=== PATIENT | female | born 1955 | race Caucasian/White ===

== ENCOUNTER 2016-10-16 07:52 | Inpatient (IN) | payer BC, OTHER ==
[2016-09-19 14:26] VITALS: BMI 36.0
--- NOTE | 2016-09-19 15:06 | PAT Medication Instructions ---
Service Date Sep 19, 2016. Current Home Medication List Ipratropium-Albuterol (Combivent Respimat), 2 PUFFS INH QID Loratadine (Claritin), 10 MG PO QAM Metoprolol Tartrate (Lopressor) (Lopressor), 25 MG PO QAM Multiple Vitamins W/ Minerals (Ocuvite Lutein), 1 CAP PO QAM Omeprazole (Prilosec), 20 MG PO QAM Prednisone (Prednisone), 2 TAB PO QAM Sertraline (Zoloft), 50 MG PO HS Simvastatin (Zocor), 10 MG PO HS Warfarin Sod (Jantoven), 4 MG PO HS Warfarin Sod (Jantoven), 2 MG PO HS [Simply Arthritis], 1,300 MG PO BID Medication Instructions For Your Scheduled Surgery - Instructions per [facility]: Warfarin Sod (Jantoven), 4 MG PO HS Warfarin Sod (Jantoven), 2 MG PO HS - Hold the following medications the morning of surgery: Loratadine (Claritin), 10 MG PO QAM Multiple Vitamins W/ Minerals (Ocuvite Lutein), 1 CAP PO QAM - Take the following medications the morning of surgery with a sip of water OTHERWISE NOTHING TO EAT OR DRINK AFTER MIDNIGHT: Metoprolol Tartrate (Lopressor) (Lopressor), 25 MG PO QAM Omeprazole (Prilosec), 20 MG PO QAM Ipratropium-Albuterol (Combivent Respimat), 2 PUFFS INH QID [Simply Arthritis], 1,300 MG PO BID (okay to take up to 4 hours prior to surgery if needed) - Take the following medications as scheduled the night before surgery: Sertraline (Zoloft), 50 MG PO HS Simvastatin (Zocor), 10 MG PO HS Ipratropium-Albuterol (Combivent Respimat), 2 PUFFS INH QID [Simply Arthritis], 1,300 MG PO BID Note: pt was specifically told by Surgeon not to take Prednisone (Prednisone) , 2 TAB PO QAM the morning of the surgery If you have any questions please call us at [phone] (Brit Louis PA-C ) or [phone] or [phone]
--- NOTE | 2016-09-19 15:34 | DIAGNOSTIC IMAGING REPORT ---
TWO VIEW CHEST CLINICAL HISTORY: Preoperative examination. FINDINGS: PA and lateral chest radiographs are obtained. No prior studies are available for comparison at the time of dictation. The heart is mildly enlarged and there is atherosclerotic calcification of the thoracic aorta. The pulmonary vasculature is noncongested. The lungs and pleural spaces are clear. There is no pneumothorax. The skeletal structures are osteopenic. Degenerative change is noted in the thoracic spine. Cholecystectomy clips are seen in the right upper quadrant. IMPRESSION: Mild cardiac enlargement with no active disease in the chest. Electronically signed by: Cruz Noel M.D. 09/19/2016 3:33 PM
[2016-09-19 15:49] LABS: BASO % 0.1 %; BASO ABS # 0.01 K/uL (0-0.2); COMPLETE YES; EOS % 0.2 %; HEMATOCRIT 41.4 % (37-47); IG% 0.6 %; LYMPH % 9.3 %; LYMPH ABS # 0.77 K/uL (1.2-3.4); MEAN CELL VOLUME 94.5 fL (80-100); MEAN CORPUSCULAR HEMOGLOBIN 30.8 pg (25-34); MEAN CORPUSCULAR HGB CONC 32.6 g/dl (32-36); MONO % 2.9 %; NEUT % 86.9 %; PLATELET COUNT 139 K/uL (130-400); RED BLOOD COUNT 4.38 M/uL (4.2-5.4)
[2016-09-19 16:04] LABS: INR 2.1 (0.9-1.1); PARTIAL THROMBOPLASTIN RATIO 1.1; PROTHROMBIN TIME (PATIENT) 23.2 SECONDS (9.0-12.0)
[2016-09-19 16:05] LABS: URINE APPEARANCE CLEAR (CLEAR); URINE BILIRUBIN NEG (NEG); URINE COLOR YELLOW; URINE EPITHELIAL CELL AUTO 0-5 /lpf (0-5); URINE NITRITE NEG (NEG); URINE SPECIFIC GRAVITY 1.018 (1.000-1.030); UROBILINOGEN NEG (NEG); ZZUR CULT IF INDIC CLEAN CATCH NO
[2016-09-19 16:09] LABS: MANUAL MICROSCOPIC REQUIRED? NO; REVIEW REQ? NO
[2016-09-19 16:16] LABS: ESTIMATED AVERAGE GLUCOSE 114 mg/dl; HA1C FLAG Normal (Normal)
[2016-09-19 16:22] LABS: BUN/CREATININE RATIO 16.7 (10-20); CREATININE 0.91 mg/dl (0.60-1.20)
[2016-09-19 16:35] LABS: CALCIUM 8.5 mg/dl (8.5-10.1)
--- NOTE | 2016-10-15 19:52 | HISTORY & PHYSICAL EXAMINATION ---
DATE OF ADMISSION: 10/16/2016 CHIEF COMPLAINT: Chronic right knee pain. HISTORY OF PRESENT ILLNESS: This is a 61-year-old female patient of Dr. Alegre'racquel complaining of chronic right knee pain, longstanding, now progressively getting worse. The patient has failed conservative treatment including acetaminophen, intraarticular injections including cortisone and viscosupplementation. She is on Coumadin, so she cannot have anti-inflammatories. The patient has increased pain with weightbearing activities and her pain does interfere with her activities of daily living. PAST MEDICAL HISTORY: Hypercholesterolemia, atrial fibrillation, asthma, anemia, rheumatoid arthritis, osteoarthritis, acid reflux. SOCIAL HISTORY: She was a half pack per day smoker for 14 years, she has quit in 1991, current she is a nondrinker. FAMILY HISTORY: Noncontributory. REVIEW OF SYSTEMS: The patient complains of chronic right knee pain, otherwise denies any shortness of breath, chest pain, nausea, vomiting or any other joint complaints. PAST SURGICAL HISTORY: Hysterectomy, cholecystectomy, colon resection and lumpectomy left breast. MEDICATIONS: Omeprazole 20 mg daily, Coumadin 4 mg daily, metoprolol 25 mg daily, Zocor 10 mg daily, prednisone 5 mg 3 tablets by mouth daily, Zoloft 50 mg daily, calcium daily, Combivent 18/103 mcg per ACT 2 puffs every 4 hours as needed, Claritin 10 mg daily, Lovenox 100 mg every 12 hours. ALLERGIES: INCLUDE SHELLFISH AND TENORMIN. PHYSICAL EXAMINATION: GENERAL: Well-developed, well-nourished 61-year-old female in no acute distress. She is alert and oriented x3 and pleasant. HEENT: Normocephalic, atraumatic. Extraocular motions are intact. Pupils are equal and reactive to light. HEART: Regular rate and rhythm, no murmurs appreciated. LUNGS: Clear. ABDOMEN: Soft, nontender, bowel sounds present. EXTREMITIES: Right knee reveals a limited range of motion of 0-120 degrees of varus alignment. She has crepitation with passive range of motion. She has 5/5 strength with medial joint line tenderness. NEUROLOGIC: Neurovascularly, she is intact in her right lower extremity. DIAGNOSES: Right knee end-stage osteoarthritis. She has atrial fibrillation, hypertension, hypercholesterolemia, asthma, anemia, rheumatoid arthritis, osteoarthritis, and acid reflux. PLAN: The patient was advised of her diagnosis. Indications, risks, benefits, and postop course have all been reviewed. The patient wishes to proceed with a right total knee arthroplasty. Necessary consent forms, preoperative testing and clearances will be obtained.
[~2016-10-16] VITALS: Ht 172.7 cm; Wt 108.9 kg
[2016-10-16] VITALS (9 sets, daily range): BP systolic 112–140; BP diastolic 71–96; PULSE 58–88; TEMP 36.6–37.1; O2SAT 95–99; Ht 172.7 cm; Wt 108.9 kg
[~2016-10-16 07:52] MED LIST: ACETAMINOPHEN 500 MG TAB PO SCH; BUPIVACAINE 0.25% 30 ML VIAL ONE; BUPIVACAINE 0.5 % 5 MG/1 ML PF 10ML VIAL ONE; CEFAZOLIN 2000 MG/60 ML D5W 60 ML IV SCH; CLR10 PO; CeleBREX 200 MG CAP PO SCH; DEXAMETHASONE 4 MG TAB PO SCH; FAMOTIDINE 20 MG TAB PO SCH; GABAPENTIN 300 MG CAP PO SCH; HYDROCORTISONE IV 100 MG in SYRINGE 0 ML IV SCH; IPRA1AER2 INH; LACTATED RINGER'S 1000ML IV SCH; LACTATED RINGER'S 500 ML IV SCH; METO25TA56 PO; METOCLOPRAMIDE HCL 10 MG TAB PO SCH; MULTCAP31 PO; PRED-301 PO; PRLSR20 PO; ROPIVACAINE 5MG/ML 30 ML 150 MG, BUPIVACAINE/EPINEPHR 0.5% MPF 30 ML, KETOROLAC TROMETH... INFIL SCH; SERT50TA PO; SIMV10TA2 PO; WARF2TAB8 PO; WARF4TAB8 PO; [UNRECOGNIZED DRUG - OTHER] PO
[2016-10-16] MEDS ORDERED: MIDAZOLAM HCL 1 MG/ML 2ML VIAL ONE ×2 (08:29→09:39)
[2016-10-16] MEDS ORDERED: FENTANYL CITRATE INJ 50 MCG/1 ML 2 ML VIAL ONE (08:29)
[2016-10-16 08:42] LABS: PARTIAL THROMBOPLASTIN RATIO 0.9; PROTHROMBIN TIME (PATIENT) 10.7 SECONDS (9.0-12.0)
[2016-10-16] MEDS ORDERED: ATROPINE SULFATE 0.1 MG/ML 5ML SYR IV PRN (08:45)
[2016-10-16] MEDS ORDERED: PHENYLEPHRINE 100MCG/ML 5ML SYR IV PRN (08:45)
[2016-10-16] MEDS ORDERED: HYDROmorphone INJ 2 MG/ML SYR/VIAL IV PRN (08:45)
[2016-10-16] MEDS ORDERED: EpHEDrine SULFATE INJ 50 MG/ML AMP IV PRN (08:45)
[2016-10-16] MEDS ORDERED: ONDANSETRON INJ 2 MG/ML 2 ML VIAL IV PRN ×2 (08:45→12:30)
[2016-10-16] MEDS ORDERED: ENOX120I SQ (09:07)
--- NOTE | 2016-10-16 10:04 | History & Physical Bridge Note ---
H&P Re-Evaluation Bridge Note: I have examined the patient, reviewed the History & Physical and in the interval since the performance of the History & Physical I have noted the following changes of clinical significance: No changes noted
[2016-10-16] MEDS ORDERED: ORTHO JOINT ANESTHETIC ONE (10:08)
[2016-10-16] MEDS ORDERED: LIDOCAINE HCL 2% 2 ML VIAL (20MG/ML) ONE (10:28)
[2016-10-16] MEDS ORDERED: PROPOFOL IV EMULSION 10 MG/ML 20 ML VIAL IV ONE ×3 (10:28→11:48)
[2016-10-16] MEDS ORDERED: EpHEDrine SULFATE 50MG/5ML SYR ONE (10:41)
[2016-10-16] MEDS ORDERED: BACITRACIN 50000 UNIT VIAL IR ONE (11:01)
[2016-10-16] MEDS ORDERED: POVIDONE-IODINE OP SOLN 30 ML BTL TOP ONE (11:01)
--- NOTE | 2016-10-16 11:55 | [facility] Operative Report ---
Operative Report Operative Date Oct 16, 2016. Pre-Operative Diagnosis End stage osteoarthritis right knee Post-Operative Diagnosis same Procedure(s) Performed right total knee replacement Surgeon Dr Alegre Dump Operator Surgeon(s) Benigno Breen PA-C Estimated Blood Loss 5ml Findings varus grade4 medial s/p medial meniscectomy and partial acl tear Specimens A. Right knee bone and tissue Drains 2 hemovac Anesthesia spinal ,orthomix Complication(s) None Disposition Recovery Room / PACU Indications end stage djd oa I attest to the content of the Intraoperative Record and any orders documented therein. Any exceptions are noted below.
--- NOTE | 2016-10-16 12:27 | OPERATIVE REPORT ---
DATE OF OPERATION: 10/16/2016 INDICATION FOR PROCEDURE: The patient is a 61-year-old female with chronic right knee pain, failed conservative management. She has had progressive osteoarthritis in medial compartment. She is status post previous arthroscopic surgery in the past. She has failed all conservative management including injections, PT, bracing. Her exam demonstrates she still has good mobility but has a varus knee. Her x-rays demonstrate she is [id number] in the medial compartment. She has some subluxation of the femur medial on the tibia. PREOPERATIVE DIAGNOSIS: End-stage osteoarthritis, right knee. POSTOPERATIVE DIAGNOSIS: Same. PROCEDURE: Right total knee arthroplasty. SURGEON: Dr. Alegre. BASIC COMBATANT SWIMMER: Benigno Breen PA-C. ANESTHESIA: Spinal sedation, Orthomix block. OPERATION AND FINDINGS: OPERATIVE PROCEDURE: The patient taken to the operating room, anesthetized under spinal anesthetic, regional block anesthetic. She was placed supine on the operating room table. Pneumatic tourniquet was placed about the right upper thigh. Right lower extremity was prepped and draped with ChloraPrep. Exam demonstrates she had no pseudolaxity. She had good range of motion and a varus knee. She had a small effusion, pretty large leg with obesity. Her leg was elevated, exsanguinated with Esmarch bandage. Pneumatic tourniquet was raised to 350 mmHg due to upper thigh obesity. The anterior incision made longitudinally across the right knee. The incision was carried down through the subcutaneous tissues down to the fascia. Subcutaneous flaps were elevated. Subcutaneous bleeders were cauterized. The medial retinaculum was incised and extended up into the mid third of the quadriceps tendon and extended down to the medial tibial tubercle. Intra-articular findings demonstrated that she had grade 4 DJD medial compartment, partial ACL tears, evidence of previous medial meniscectomy. She had grade 2-3 wear patella, normal lateral compartment. I used the Chamorro \T\ Nephew Journey 2.0, total knee arthroplasty system using [employer] MRI templating custom cutting blocks sized for a 6 femur, 5 tibia. To expose the knee the infrapatellar fat pad was resected. The fat pad over the anterior femur for placement of the component in that area was resected. Small lateral synovial bands were released. The cruciate ligaments were resected, menisci were resected. We had to do more releases around the medial tibial plateau to balance the ligaments and later pie crust the MCL to balance the ligaments. The femur could not be easily exposed due to the patella, so we went ahead and first did our patellar cut. The patellar width was measured first and then a subperiosteal peel lateral release was performed around the patella. Then the width was reproduced using a freehand cut technique and a 38 patella component. Drill holes were made for the patellar component. The excess lateral facet was beveled off to prevent any impingement on the condyle of the prosthetic. Then the femur was exposed and the custom cutting block was pinned in position and the distal femoral cut was made. Then the 5-in-1 cutting block was placed for the 6 femur. The anterior, posterior and chamfer cuts were made. Then the tibia was subluxed and the custom tibial cutting block was pinned in position and the proximal tibial cut was made. Then the lamina conche operator was used to verify ligamentous balance. The tibia was subluxed. The 5 tibial trial was externally rotated in line with the tibial tubercle, pinned in position. The punch for the stem was used. The 6 femoral trial was inserted, centered. The notch cutting devices were used. The collet was placed and then a 12 poly insert gave balanced ligaments through full range of motion and the patella tracked centrally. The trials were removed. The Orthomix anesthetic cocktail was injected per protocol. The knee was copiously irrigated with pulsatile lavage antibiotic solution and bacitracin. Final components were cemented with Simplex G cement. Final components were a 6 Oxinium posterior stabilized Chamorro \T\ Nephew Journey 2.0 right femoral component, the 5 tibial baseplate, the 12 posterior stabilized poly insert and 38 mm patella. While the cement cured Betadine soak was used per protocol. The knee was copiously irrigated with antibiotic solution and bacitracin. The quadriceps tendon and medial retinaculum were closed with interrupted [id number] #1 Vicryl sutures. Subcutaneous tissue closed with interrupted 2-0 Vicryl. Skin closed with key. Sterile dressings were applied including a Silverlon occlusive dressing. We did close the knee over 2 Hemovac drains. The patient tolerated the procedure well. MARY Ferris was my unit assistant and he functioned as unit assistant for the entire procedure. He assisted in patient positioning, prepping, draping, leg positioning, soft tissue retraction, instrument management, suture management as needed during the procedure and he performed the fascial, subcutaneous and skin closure and will participate in postoperative care of the patient. I attest to the content of the Intraoperative Record and any orders documented therein. Any exceptio ns are noted below.
[2016-10-16] MEDS ORDERED: MAGNESIUM HYDROXIDE SUSP 30 ML UDC PO PRN (12:30)
[2016-10-16] MEDS ORDERED: OXYCODONE HCL IR 5 MG TAB (IMMEDIATE RELEASE) PO PRN (12:30)
[2016-10-16] MEDS ORDERED: ZOLPIDEM TARTRATE 5 MG TAB PO PRN (12:30)
[2016-10-16] MEDS ORDERED: BISACODYL 10 MG SUPP PR PRN (12:30)
[2016-10-16] MEDS ORDERED: SOD PHOSPHATE/SOD BIPHOSPHATE ENEMA 132 ML BTL PR PRN (12:30)
[2016-10-16] MEDS ORDERED: MoRPHine SULFATE 2 MG/ML CARP IV PRN (12:30)
--- NOTE | 2016-10-16 12:51 | Anesthesiology Progress Note ---
Anesthesia Post Op Note Date & Time Oct 16, 2016 at 12:50 Vital Signs Pain Intensity: 0 Vital Signs Past 12 Hours Date Time Temp Pulse Resp B/P Pulse Ox O2 Delivery O2 Flow Rate FiO2 10/16/16 12:40 65 15 143/81 98 Nasal Cannula 2 10/16/16 12:30 75 14 143/69 98 Nasal Cannula 2 10/16/16 12:24 36.0 82 22 128/72 96 Nasal Cannula 2 10/16/16 08:29 36.6 67 18 131/96 99 Room Air Notes Mental Status: alert / awake / arousable, participated in evaluation Pt Amnestic to Procedure: Yes Nausea / Vomiting: adequately controlled Pain: adequately controlled Airway Patency, RR, SpO2: stable & adequate BP & HR: stable & adequate Hydration State: stable & adequate Anesthetic Complications: no major complications apparent
--- NOTE | 2016-10-16 12:55 | DIAGNOSTIC IMAGING REPORT ---
RIGHT KNEE 2 VIEWS History: Right total knee arthroplasty. Degenerative arthritis. Postop. FINDINGS: The patient is status post a right total knee arthroplasty. The hardware is intact. No fracture or dislocation. Skin key and surgical drains are in place. IMPRESSION: Right total knee arthroplasty. No evidence for hardware complication. Electronically signed by: Adán Gann M.D. 10/16/2016 12:53 PM Dictated Date/Time: 10/16/2016 12:52 PM
[2016-10-16] MEDS ORDERED: MoRPHine SULFATE 4 MG/ML 1 ML CARP\\VIAL IV PRN (14:30)
[2016-10-16] MEDS: D5W AND 1/2NSS + 20MEQ KCL 1,000 ML IV SCH ×2 (14:41→23:58)
--- NOTE | 2016-10-16 14:51 | Medical Consult ---
Consultation Date of Consultation: Oct 16, 2016. Attending Physician: Matthew Alegre M.D. Reason for Consultation: Post Op Medical Management History of Present Illness 61 year old female s/p right TKA today by Dr. Alegre. Patient reports she had mild right knee pain for the past several years however the pain acutely worsened over past couple of months. Patient failed outpatient conservative measures and therefore presented for the planned procedure today. Post operatively the patient is doing well. She reports her pain is well controlled. No chest pain or shortness of breath. She denies lightheadedness and dizziness. No numbness or tingling to the BLLE. She has not voided since surgery. Past Medical/Surgical History Medical Problems: (1) Asthma Status: Chronic (2) Depression Status: Chronic (3) Diverticulosis Status: Chronic (4) Dyslipidemia Status: Chronic (5) Osteoarthritis Status: Chronic (6) Palpitations Status: Chronic (7) Pulmonary embolism Status: Chronic (8) Retinal detachment Permanent Comment: s/p repair Status: Chronic (9) Vocal cord polyp Status: Chronic Surgical Problems: (1) H/O arthroscopy of right knee Status: Chronic (2) H/O bilateral oophorectomy Status: Chronic (3) H/O dilation and curettage Status: Chronic (4) H/O exploratory laparotomy Status: Chronic (5) History of dental surgery Status: Chronic (6) History of partial colectomy Permanent Comment: for diverticulitis Status: Chronic (7) Hx of cholecystectomy Status: Chronic (8) S/P lumpectomy of breast Status: Chronic (9) S/P partial hysterectomy Status: Chronic (10) S/P tonsillectomy and adenoidectomy Status: Chronic Family History FH: HTN (hypertension) FATHER FH: atrial fibrillation MOTHER Social History Smoking Status: Former Smoker Alcohol Use: none Allergies Coded Allergies: Shellfish Allergy (Verified Allergy, Severe, ANAPHYLAXIS, 10/16/16) Atenolol (Verified Allergy, Unknown, MULTIPLERSONALITY, 10/16/16) Home Medications Lovenox (Enoxaparin Sodium) 120 Mg/0.8 Ml Inj 100 Mg SQ BID Combivent Respimat (Ipratropium-Albuterol) 1 Aer Aer 2 Puffs INH QID Lopressor (Metoprolol Tartrate) 25 Mg Tab 25 Mg PO QAM Prednisone 5 Mg Tab 2 Tab PO QAM Prilosec (Omeprazole) 20 Mg Capcr 20 Mg PO QAM Jantoven (Warfarin Sodium) 2 Mg Tab 2 Mg PO HS MON, WED, FRI AND SUN Jantoven (Warfarin Sodium) 4 Mg Tab 4 Mg PO HS TAKES TUES, THUR AND SAT Claritin (Loratadine) 10 Mg Tab 10 Mg PO QAM Ocuvite Lutein (Multiple Vitamins W/ Minerals) 1 Cap Cap 1 Cap PO QAM [Simply Arthritis] 1,300 Mg PO BID GENERIC TYLENOL ARTHRITIS MEDICINE - BRAND FOR Pcsso Zocor (Simvastatin) 10 Mg Tab 10 Mg PO HS Zoloft (Sertraline HCl) 50 Mg Tab 50 Mg PO HS Current Inpatient Medications Current Inpatient Medications Medications (Trade) Dose Ordered Sig/Tom Route Start Time Stop Time Status Last Admin Dose Admin Lactated Ringer's 1,000 ml @ 60 mls/hr [id number] IV 10/16/16 06:00 10/16/16 22:39 10/16/16 08:55 60 MLS/HR Cefazolin Sodium (Ancef 2000mg/60 ml D5W) 60 ml @ 100 mls/hr PREOP IV 10/16/16 06:00 10/16/16 18:00 10/16/16 10:20 100 MLS/HR Acetaminophen (Tylenol Tab) 1,000 mg PREOP PO 10/16/16 06:00 10/16/16 18:00 Celecoxib (CeleBREX CAP) 200 mg PREOP PO 10/16/16 06:00 10/16/16 18:00 Dexamethasone (Decadron Tab) 8 mg PREOP PO 10/16/16 06:00 10/16/16 18:00 10/16/16 08:49 8 MG Famotidine (Pepcid Tab) 20 mg PREOP PO 10/16/16 06:00 10/16/16 18:00 10/16/16 08:50 20 MG Gabapentin (Neurontin Cap) 600 mg PREOP PO 10/16/16 06:00 10/16/16 18:00 10/16/16 08:50 600 MG Metoclopramide HCl 10 mg 10 mg PREOP PO 10/16/16 06:00 10/16/16 18:00 10/16/16 08:49 10 MG Hydrocortisone Sodium Succinate/ Syringe (Solu-Cortef IV/ Syringe) 2 ml @ 4 mls/min PREOP IV 10/16/16 06:00 10/16/16 15:00 10/16/16 09:44 4 MLS/MIN Enoxaparin Sodium (Lovenox Inj) 100 mg Q12H SQ 10/17/16 09:00 11/16/16 08:59 Loratadine (Claritin Tab) 10 mg QAM PO 10/17/16 09:00 11/16/16 08:59 Metoprolol Tartrate (Lopressor Tab) 25 mg QAM PO 10/17/16 09:00 11/16/16 08:59 Sertraline HCl (Zoloft Tab) 50 mg HS PO 10/16/16 21:00 11/15/16 20:59 Simvastatin 10 mg 10 mg HS PO 10/16/16 21:00 11/15/16 20:59 Potassium Chloride/Dextrose/ Sod Cl 1,000 ml @ 100 mls/hr Q10H IV 10/16/16 14:30 10/17/16 14:29 10/16/16 14:41 100 MLS/HR Cefazolin Sodium/ Dextrose (Ancef Iv/D5 50ml) 60 ml @ 100 mls/hr Q8H IV 10/16/16 18:00 10/17/16 02:35 Oxycodone HCl (Roxicodone Immediate Rel Tab) 1 TABLET FOR PAIN RATING... Q4H PRN PO 10/16/16 12:30 10/30/16 12:29 Oxycodone HCl (Oxycontin Tab) 10 mg Q12 PO 10/16/16 21:00 10/30/16 20:59 Morphine Sulfate (MoRPHine SULFATE INJ) 2 mg Q2H PRN IV 10/16/16 12:30 10/30/16 12:29 Acetaminophen (Tylenol Tab) 1,000 mg Q8 PO 10/16/16 15:15 11/15/16 15:14 Magnesium Hydroxide (Milk Of Magnesia Susp) 30 ml Q6H PRN PO 10/16/16 12:30 11/15/16 12:29 Bisacodyl (Dulcolax Supp) 10 mg DAILY PRN OK 10/16/16 12:30 11/15/16 12:29 Sodium Biphosphate/ Sodium Phosphate (Fleet Enema) 132 ml DAILY PRN OK 10/16/16 12:30 11/15/16 12:29 Docusate Sodium (coLACE CAP) 100 mg BID PO 10/16/16 21:00 11/15/16 20:59 Diphenhydramine HCl (Benadryl Cap) 25 mg Q8H PRN PO 10/16/16 12:30 11/15/16 12:29 Zolpidem Tartrate (Ambien Tab) 5 mg HSZ PRN PO 10/16/16 12:30 11/15/16 12:29 Multivitamins (Multivitamin Tab) 1 tab QAM PO 10/17/16 09:00 11/16/16 08:59 Ondansetron HCl (Zofran Inj) 4 mg Q6H PRN IV 10/16/16 12:30 11/15/16 12:29 Pantoprazole Sodium (Protonix Tab) 40 mg QAM PO 10/17/16 09:00 11/16/16 08:59 Tramadol HCl 1 tablet for pain rating... Q4H PRN PO 10/16/16 12:30 11/15/16 12:29 Hydrocortisone Sodium Succinate/ Syringe (Solu-Cortef IV/ Syringe) 2 ml @ 4 mls/min Q8H IV 10/16/16 15:00 10/17/16 07:01 Albuterol/ Ipratropium (Combivent Respimat Inh) 1 puffs QID INH 10/16/16 17:00 11/15/16 16:59 Morphine Sulfate (MoRPHine SULFATE INJ) 4 mg Q2H PRN IV 10/16/16 14:30 10/30/16 14:29 Prednisone (PredniSONE TAB) 20 mg Taper QAM PO 10/17/16 15:00 11/17/16 09:59 Warfarin Sodium (Coumadin Tab) 2 mg UD PO 10/16/16 16:00 11/15/16 15:59 UNV Warfarin Sodium (Coumadin Tab) 4 mg UD PO 10/16/16 16:00 11/15/16 15:59 UNV Review of Systems 10 point review of systems was completed with the pertinent positives and negatives noted per the HPI Physical Exam Date Time Temp Pulse Resp B/P Pulse Ox O2 Delivery O2 Flow Rate FiO2 10/16/16 14:30 85 14 140/83 98 Room Air 10/16/16 14:00 76 16 131/81 98 Nasal Cannula 2.0 10/16/16 13:30 99 Nasal Cannula 2.0 10/16/16 13:30 36.9 69 18 128/78 99 Nasal Cannula 2.0 10/16/16 13:30 Nasal Cannula 2.0 10/16/16 13:20 77 18 141/71 97 Nasal Cannula 2 10/16/16 13:10 71 19 132/75 98 Nasal Cannula 2 10/16/16 13:00 36.2 66 16 140/69 98 Nasal Cannula 2 10/16/16 12:50 65 14 129/74 98 Nasal Cannula 2 10/16/16 12:40 65 15 143/81 98 Nasal Cannula 2 10/16/16 12:30 75 14 143/69 98 Nasal Cannula 2 10/16/16 12:24 36.0 82 22 128/72 96 Nasal Cannula 2 10/16/16 08:29 36.6 67 18 131/96 99 Room Air General Appearance: no apparent distress Head: normocephalic Eyes: normal inspection ENT: hearing grossly normal Neck: supple, no JVD Respiratory/Chest: lungs clear, normal breath sounds, no respiratory distress Cardiovascular: regular rate, rhythm, no edema, normal peripheral pulses Abdomen/GI: normal bowel sounds, non tender, soft Extremities/Musculoskelatal: + pertinent finding (s/p right knee surgery, surgical dressing intact, drain in place draining bloody drainage) Neurologic/Psych: no motor/sensory deficits, alert, normal mood/affect, oriented x 3 Skin: normal color, warm/dry Laboratory Results Last 24 Hours Test 10/16/16 08:18 10/16/16 08:25 Bedside Glucose 84 mg/dl Prothrombin Time 10.7 SECONDS Prothromb Time International Ratio 1.0 Activated Partial Thromboplast Time 22.4 SECONDS Partial Thromboplastin Ratio 0.9 Assessment & Plan S/P RIGHT TKA - POD#0 - activity and wound care orders as per ortho - pain control with bowel regimen - PT/OT - monitor H/H for acute blood loss anemia and transfuse blood products PRN HX PE - Lovenox/Coumadin bridging ordered by ortho OSTEOARTHRITIS - on chronic Prednisone 10mg daily - Hydrocortisone 100mg q8h x 3 doses ordered by ortho - recommend starting 20mg Prednisone on 10/17 and 10/18 then resume home dosing on 10/19 HX HEART PALPITATIONS - continue beta fatou HLD - continue statin DEPRESSION - continue sertraline DVT PROPHYLAXIS - Lovenox/Coumadin bridging ATTENDING NOTE Patient seen & examined. Reviewed above medical consult and confirmed all the findings in person. Patient underwent Right TKA earlier today and has been doping well post- operatively. Reviewed the medical history & medications in detail. DVT Prophylaxis, Anti-coagulation and PT/OT as per Surgical team. Thank you for this consultation. We will follow the patient with you during their hospital stay. You can reach a member of the [facility] Hospitalist Team 27/04 via pager @ [phone]. Dr. Escobar will follow the patient. Charlie Hawkins MD
[2016-10-16] MEDS: TRAMADOL HCL 50 MG TAB PO PRN ×2 (15:21→21:24)
[2016-10-16] MEDS: HYDROCORTISONE IV 100 MG in SYRINGE 0 ML IV SCH ×2 (15:22→22:44)
[2016-10-16] MEDS ORDERED: WARFARIN SOD 4 MG TAB PO SCH ×2 (16:00)
[2016-10-16] MEDS: ACETAMINOPHEN 500 MG TAB PO SCH ×2 (16:12→21:29)
[2016-10-16] MEDS ORDERED: IPRATROPIUM BROMIDE/ALBUTEROL respimat INH INH SCH (17:00)
[2016-10-16] MEDS: IPRATROPIUM BROMIDE/ALBUTEROL respimat INH INH SCH ×2 (17:00→21:00)
[2016-10-16] MEDS: CEFAZOLIN IV 2,000 MG in DEXTROSE 5% 50ML 50 ML IV SCH (18:39)
[2016-10-16] MEDS: OXYCODONE HCL 10 MG TABCR (OXYCONTIN) PO SCH (21:00)
[2016-10-16] MEDS: DOCUSATE SODIUM 100 MG CAP PO SCH (21:00)
[2016-10-16] MEDS: SIMVASTATIN 10 MG TAB PO SCH (21:15)
[2016-10-16] MEDS: SERTRALINE HCL 50 MG TAB PO SCH (21:15)
[2016-10-17] VITALS (7 sets, daily range): BP systolic 95–137; BP diastolic 66–87; PULSE 59–66; TEMP 36.7–37; O2SAT 96–98
[2016-10-17] MEDS: CEFAZOLIN IV 2,000 MG in DEXTROSE 5% 50ML 50 ML IV SCH (02:08)
[2016-10-17] MEDS: HYDROCORTISONE IV 100 MG in SYRINGE 0 ML IV SCH (06:08)
[2016-10-17] MEDS: ACETAMINOPHEN 500 MG TAB PO SCH ×3 (06:09→21:32)
[2016-10-17 06:11] LABS: MEAN CELL VOLUME 92.1 fL (80-100); MEAN CORPUSCULAR HEMOGLOBIN 31.2 pg (25-34); MEAN CORPUSCULAR HGB CONC 33.8 g/dl (32-36); MEAN PLATELET VOLUME 10.8 fL (7.4-10.4); PLATELET COUNT 134 K/uL (130-400); RED BLOOD COUNT 3.69 M/uL (4.2-5.4); WHITE BLOOD COUNT 13.62 K/uL (4.8-10.8)
[2016-10-17 06:18] LABS: PROTHROMBIN TIME (PATIENT) 11.2 SECONDS (9.0-12.0)
[2016-10-17 06:47] LABS: BUN/CREATININE RATIO 19.3 (10-20); CALCIUM 8.1 mg/dl (8.5-10.1); CREATININE 0.83 mg/dl (0.60-1.20); POTASSIUM 4.1 mmol/L (3.5-5.1)
[2016-10-17] MEDS: TRAMADOL HCL 50 MG TAB PO PRN ×3 (07:03→21:31)
--- NOTE | 2016-10-17 08:25 | Anesthesiology Progress Note ---
Anesthesia Post Op Note Date & Time Oct 17, 2016 at 08:24 Vital Signs Pain Intensity: 5.0 Vital Signs Past 12 Hours Date Time Temp Pulse Resp B/P Pulse Ox O2 Delivery O2 Flow Rate FiO2 10/17/16 07:53 36.7 66 17 124/80 96 Room Air 10/17/16 07:08 Room Air 10/17/16 03:20 36.8 66 16 137/87 98 Room Air 10/16/16 23:55 Room Air 10/16/16 23:46 36.8 58 16 112/71 95 Room Air 10/16/16 20:47 82 122/81 Notes Mental Status: alert / awake / arousable, participated in evaluation Pt Amnestic to Procedure: Yes Nausea / Vomiting: adequately controlled Pain: adequately controlled Airway Patency, RR, SpO2: stable & adequate BP & HR: stable & adequate Hydration State: stable & adequate Neuraxial Anesthesia: was administered, sensory block resolved Anesthetic Complications: no major complications apparent
--- NOTE | 2016-10-17 08:40 | Orthopedic Progress Note ---
Orthopedic Progress Note Date of Service Oct 17, 2016. Subjective Post OP Day: 1 Reports: feeling well, pain controlled w PO medications, Denies: SOB, calf pain , chest pain, complaints, light headedness, nausea / vomiting Objective calves soft nontender, N/V intact, capillary refill less than 2 sec., dressing C /D/I, A&O x3, toes mobile Date Time Temp Pulse Resp B/P Pulse Ox O2 Delivery O2 Flow Rate FiO2 10/17/16 08:29 96 Room Air 10/17/16 07:53 36.7 66 17 124/80 96 Room Air 10/17/16 07:08 Room Air 10/17/16 03:20 36.8 66 16 137/87 98 Room Air 10/16/16 23:55 Room Air 10/16/16 23:46 36.8 58 16 112/71 95 Room Air 10/16/16 20:47 82 122/81 10/16/16 18:59 37.1 88 16 131/84 95 Room Air 10/16/16 16:00 98 Room Air 2.0 10/16/16 15:28 36.8 73 16 116/72 98 Room Air 10/16/16 14:30 85 14 140/83 98 Room Air 10/16/16 14:00 76 16 131/81 98 Nasal Cannula 2.0 10/16/16 13:30 99 Nasal Cannula 2.0 10/16/16 13:30 36.9 69 18 128/78 99 Nasal Cannula 2.0 10/16/16 13:30 Nasal Cannula 2.0 10/16/16 13:20 77 18 141/71 97 Nasal Cannula 2 10/16/16 13:10 71 19 132/75 98 Nasal Cannula 2 10/16/16 13:00 36.2 66 16 140/69 98 Nasal Cannula 2 10/16/16 12:50 65 14 129/74 98 Nasal Cannula 2 10/16/16 12:40 65 15 143/81 98 Nasal Cannula 2 10/16/16 12:30 75 14 143/69 98 Nasal Cannula 2 10/16/16 12:24 36.0 82 22 128/72 96 Nasal Cannula 2 Laboratory Results 24 Hours: Test 10/17/16 05:30 Hematocrit 34.0 % Hemoglobin 11.5 g/dL Prothromb Time International Ratio 1.0 Prothrombin Time 11.2 SECONDS Assessment & Plan Assessment: POD #1, Right TKA Plan: PT/ OT DVT proph- Coumadin with Lovenox bridging until INR therapeutic. D/C planning- Home w OPPT likely Thursday. As per medicine Inhouse Planning Pain Management: Oxycontin, Morphine, PO Tylenol, Oxy IR DVT Prophylaxis: TEDs, SCDs, Coumadin, Lovenox Discharge Planning Discharge Planning: home with oppt Pain Management: Oxycontin, PO Tylenol, Oxy IR DVT Prophylaxis: TEDs, Coumadin, Lovenox Therapy: Physical Therapy, Occupational Therapy
--- NOTE | 2016-10-17 08:41 | Discharge Instructions ---
Discharge Instructions Admission Reason for Admission: Right Knee Degenerative Joint Disease Discharge Discharge Diagnosis / Problem: Right TKA Discharge Goals Goal(s): Improve function Activity Recommendations Activity Limitations: as noted below . Instructions / Follow-Up Instructions / Follow-Up ACTIVITY RECOMMENDATIONS: SELF CARE INSTRUCTIONS AFTER TOTAL KNEE REPLACEMENT A. You may need to continue a physical therapy program after discharge from the hospital. There are several options available to you. Your doctor will assist you in selecting the best one for you. 1. An out-patient facility 2 to 3 times a week for therapy or home therapy. 2. Continue working on all exercises taught to you in the hospital. Your goals should be to increase bending of your knee to 90 degrees and beyond and to fully straighten your knee. B. You may progress at your own pace from walking with a walker or crutches to a cane; then to no assistive devices. C. Make walking a part of your daily routine. Be up as much as comfortable with rest periods throughout the day. Rest with leg elevation is very important. Use the ice wrap frequently for the first 3-4 weeks. D. There are no restrictions on activities. You may ride in a car, shop, participate in zinc skimmer and all social activities. E. Wear the long elastic stockings (TORREY hose) 20 hours a day for 2 weeks after surgery. They can be removed several times a day for laundering and for a bath. F. You may shower, no tub baths until cleared by your doctor. SPECIAL CARE INSTRUCTIONS: VERY IMPORTANT TO READ AND REVIEW A. There are a few signs you need to watch for after you are home. Call [facility] if you notice any of the followin. Increased severe knee pain. Some pain is expected especially when you exercise. 2. Increased swelling in your leg or knee; pain or swelling of the calf muscle in either lower leg. 3. Any fluid drainage from the incision. 4. Shortness of breath or chest pain. B. Please call [facility] at if you have any concerns or questions about your operation or recovery. The doctor or his nurse will return your call promptly. C. You must take antibiotics before dental work, bladder, bowel or other surgery. Your doctor will provide you with a permanent care to carry describing this precaution. IMPORTANT: * REMEMBER TO TAKE ASPIRIN, 81 MG, TWICE DAILY FOR 4 WEEKS UNLESS OTHERWISE DIRECTED. THIS IS YOUR BLOOD THINNER. * HIGH RISK PATIENTS MAY BE PRESCRIBED A STRONGER BLOOD THINNER. THIS WILL BE PROVIDED AT DISCHARGE. * CALL IF INCREASED PAIN, REDNESS, DRAINAGE OR FEVER GREATER THAT 101. * WEAR TORREY HOSE 20 HOURS PER DAY FOR 2 WEEKS. * YOU MAY HAVE A LARGE BAND-AID LIKE DRESSING (SILVERON). THIS WILL REMAIN ON YOUR INCISION FOR 7 DAYS, THEN CAN BE REMOVED. IF INCISION IS LEAKING THROUGH DRESSING, CALL THE OFFICE . FOLLOW UP VISIT: If appointment is not already scheduled: Please call [facility] to make a follow-up appointment for 2 weeks after your surgery at . Current Hospital Diet Patient's current hospital diet: Regular Diet Discharge Diet Recommended Diet: Regular Diet Procedures Procedures Performed: Right Total Knee Arthroplasty Cemented Pending Studies Studies pending at discharge: no Laboratory Results Hemoglobin A1c Test 09/19/16 15:04 Range/Units Estimated Average Glucose 114 mg/dl Hemoglobin A1c 5.6 4.5-5.6 % Medical Emergencies . Who to Call and When: Medical Emergencies: If at any time you feel your situation is an emergency, please call 911 immediately. . Non-Emergent Contact Non-Emergency issues call your: Primary Care Provider . "Provider Documentation" section prepared by Benigno Breen. VTE Core Measure Inpt VTE Proph given/why not?: Enoxaparin (Lovenox)SQ, Warfarin (Coumadin), T.E.D. Stockings, SCD's
[2016-10-17] MEDS: OXYCODONE HCL 10 MG TABCR (OXYCONTIN) PO SCH ×2 (08:52→21:00)
[2016-10-17] MEDS: DOCUSATE SODIUM 100 MG CAP PO SCH ×2 (08:52→21:00)
[2016-10-17] MEDS: IPRATROPIUM BROMIDE/ALBUTEROL respimat INH INH SCH ×4 (08:52→21:00)
[2016-10-17] MEDS: LORATADINE 10 MG TAB PO SCH (08:53)
[2016-10-17] MEDS: METOPROLOL TARTRATE 25 MG TAB PO SCH (08:53)
[2016-10-17] MEDS: ENOXAPARIN 100 MG/1ML SYR SQ SCH ×2 (08:54→21:00)
[2016-10-17] MEDS ORDERED: PANTOprazole SOD 40 MG TAB PO SCH (09:00)
[2016-10-17] MEDS ORDERED: NURSING VERBAL MED ORDER ONE (09:00)
[2016-10-17] MEDS ORDERED: MULTIVITAMIN TAB PO SCH (09:00)
[2016-10-17] MEDS ORDERED: WARFARIN SOD 2 MG TAB PO SCH ×2 (16:00)
--- NOTE | 2016-10-17 19:07 | Progress Note ---
Medicine Progress Note Date & Time of Visit: Oct 17, 2016 at 19:03. Subjective Patient seen and examined. Knee feels a little sore after working with physical therapy. Feels that she is doing very well after surgery. Objective Last 8 Hrs Date Time Temp Pulse Resp B/P Pulse Ox O2 Delivery O2 Flow Rate FiO2 10/17/16 15:37 36.9 59 18 120/74 98 Room Air 10/17/16 15:20 98 Room Air 10/17/16 11:15 37.0 64 16 95/66 98 Room Air Physical Exam: General-awake; alert; NAD Eyes-EOMI; no scleral icterus Neck-no stridor; trachea midline Lungs-CTA bilaterally; no wheezes/crackles Heart-RRR; no m/r/g Abdomen-soft; NTND; nBS Extremities-right knee bandage and drain c/d/i Neuro-no gross focal deficits Laboratory Results: Last 24 Hours Test 10/17/16 05:30 White Blood Count 13.62 K/uL Red Blood Count 3.69 M/uL Hemoglobin 11.5 g/dL Hematocrit 34.0 % Mean Corpuscular Volume 92.1 fL Mean Corpuscular Hemoglobin 31.2 pg Mean Corpuscular Hemoglobin Concent 33.8 g/dl RDW Standard Deviation 42.7 fL RDW Coefficient of Variation 12.7 % Platelet Count 134 K/uL Mean Platelet Volume 10.8 fL Prothrombin Time 11.2 SECONDS Prothromb Time International Ratio 1.0 Sodium Level 144 mmol/L Potassium Level 4.1 mmol/L Chloride Level 108 mmol/L Carbon Dioxide Level 28 mmol/L Anion Gap 8.0 mmol/L Blood Urea Nitrogen 16 mg/dl Creatinine 0.83 mg/dl Est Creatinine Clear Calc Drug Dose 93.2 ml/min Estimated GFR () 88.8 Estimated GFR (Non- 76.6 BUN/Creatinine Ratio 19.3 Random Glucose 148 mg/dl Calcium Level 8.1 mg/dl Assessment & Plan S/P RIGHT TKA - POD#1 - activity and wound care orders as per ortho - pain control with bowel regimen - PT/OT - monitor H/H for acute blood loss anemia and transfuse blood products PRN HX PE - Lovenox/Coumadin bridging ordered by ortho OSTEOARTHRITIS - on chronic Prednisone 10mg daily - Hydrocortisone 100mg q8h x 3 doses ordered by ortho - transitioned to 20mg Prednisone taper HX HEART PALPITATIONS - continue beta fatou HLD - continue statin DEPRESSION - continue sertraline DVT PROPHYLAXIS - Lovenox/Coumadin bridging Current Inpatient Medications: Current Inpatient Medications Medications (Trade) Dose Ordered Sig/Tom Route Start Time Stop Time Status Last Admin Dose Admin Enoxaparin Sodium (Lovenox Inj) 100 mg Q12H SQ 10/17/16 09:00 11/16/16 08:59 10/17/16 08:54 100 MG Loratadine (Claritin Tab) 10 mg QAM PO 10/17/16 09:00 11/16/16 08:59 10/17/16 08:53 10 MG Metoprolol Tartrate (Lopressor Tab) 25 mg QAM PO 10/17/16 09:00 11/16/16 08:59 10/17/16 08:53 25 MG Sertraline HCl (Zoloft Tab) 50 mg HS PO 10/16/16 21:00 11/15/16 20:59 10/16/16 21:15 50 MG Simvastatin (Zocor Tab) 10 mg HS PO 10/16/16 21:00 11/15/16 20:59 10/16/16 21:15 10 MG Oxycodone HCl (Roxicodone Immediate Rel Tab) 1 TABLET FOR PAIN RATING... Q4H PRN PO 10/16/16 12:30 10/30/16 12:29 Oxycodone HCl (Oxycontin Tab) 10 mg Q12 PO 10/16/16 21:00 10/30/16 20:59 Morphine Sulfate (MoRPHine SULFATE INJ) 2 mg Q2H PRN IV 10/16/16 12:30 10/30/16 12:29 Acetaminophen (Tylenol Tab) 1,000 mg Q8 PO 10/16/16 15:15 11/15/16 15:14 10/17/16 13:53 1,000 MG Magnesium Hydroxide (Milk Of Magnesia Susp) 30 ml Q6H PRN PO 10/16/16 12:30 11/15/16 12:29 Bisacodyl (Dulcolax Supp) 10 mg DAILY PRN MS 10/16/16 12:30 11/15/16 12:29 Sodium Biphosphate/ Sodium Phosphate (Fleet Enema) 132 ml DAILY PRN MS 10/16/16 12:30 11/15/16 12:29 Docusate Sodium (coLACE CAP) 100 mg BID PO 10/16/16 21:00 11/15/16 20:59 Diphenhydramine HCl (Benadryl Cap) 25 mg Q8H PRN PO 10/16/16 12:30 11/15/16 12:29 Zolpidem Tartrate (Ambien Tab) 5 mg HSZ PRN PO 10/16/16 12:30 11/15/16 12:29 Ondansetron HCl (Zofran Inj) 4 mg Q6H PRN IV 10/16/16 12:30 11/15/16 12:29 Tramadol HCl (Ultram Tab) 1 tablet for pain rating... Q4H PRN PO 10/16/16 12:30 11/15/16 12:29 10/17/16 11:09 100 MG Albuterol/ Ipratropium (Combivent Respimat Inh) 1 puffs QID INH 10/16/16 17:00 11/15/16 16:59 Morphine Sulfate (MoRPHine SULFATE INJ) 4 mg Q2H PRN IV 10/16/16 14:30 10/30/16 14:29 Prednisone (PredniSONE TAB) 20 mg Taper QAM PO 10/17/16 15:00 11/17/16 09:59 10/17/16 14:55 20 MG Warfarin Sodium (Coumadin Tab) 2 mg SuMoWeFr@1600 PO 10/17/16 16:00 11/16/16 15:59 10/17/16 17:19 2 MG Warfarin Sodium (Coumadin Tab) 4 mg TuThSa@1600 PO 10/16/16 16:00 11/15/16 15:59 10/16/16 16:11 4 MG Pantoprazole Sodium (Protonix Tab) 40 mg DAILYBB PO 10/18/16 06:00 11/16/16 08:59 Multivitamins/ Minerals (Multivitamin W/ Minerals Tab) 1 tab QAM PO 10/18/16 09:00 11/17/16 08:59 Cholecalciferol (Vitamin D Tab) 5,000 inter.unit DAILY PO 10/18/16 09:00 11/17/16 08:59
[2016-10-17] MEDS: SIMVASTATIN 10 MG TAB PO SCH (22:01)
[2016-10-17] MEDS: SERTRALINE HCL 50 MG TAB PO SCH (22:01)
[2016-10-18] MEDS: ACETAMINOPHEN 500 MG TAB PO SCH (05:37)
[2016-10-18] MEDS ORDERED: PANTOprazole SOD 40 MG TAB PO SCH (06:00)
[2016-10-18 06:01] VITALS: BP 125/76; PULSE 62; TEMP 36.8; O2SAT 99
[2016-10-18 06:45] LABS: HEMATOCRIT 29.6 % (37-47); MEAN CELL VOLUME 94.3 fL (80-100); MEAN CORPUSCULAR HEMOGLOBIN 30.6 pg (25-34); MEAN CORPUSCULAR HGB CONC 32.4 g/dl (32-36); MEAN PLATELET VOLUME 10.4 fL (7.4-10.4); PLATELET COUNT 115 K/uL (130-400); RED BLOOD COUNT 3.14 M/uL (4.2-5.4); WHITE BLOOD COUNT 8.51 K/uL (4.8-10.8)
[2016-10-18 07:02] LABS: INR 1.2 (0.9-1.1); PROTHROMBIN TIME (PATIENT) 13.4 SECONDS (9.0-12.0)
[2016-10-18 07:34] LABS: BUN/CREATININE RATIO 24.5 (10-20); CREATININE 0.72 mg/dl (0.60-1.20); POTASSIUM 3.9 mmol/L (3.5-5.1)
[2016-10-18] MEDS: IPRATROPIUM BROMIDE/ALBUTEROL respimat INH INH SCH ×2 (07:51→13:00)
[2016-10-18] MEDS: OXYCODONE HCL 10 MG TABCR (OXYCONTIN) PO SCH (07:51)
[2016-10-18] MEDS: DOCUSATE SODIUM 100 MG CAP PO SCH (07:52)
[2016-10-18] MEDS: METOPROLOL TARTRATE 25 MG TAB PO SCH (07:52)
[2016-10-18] MEDS: LORATADINE 10 MG TAB PO SCH (07:52)
[2016-10-18] MEDS: ENOXAPARIN 100 MG/1ML SYR SQ SCH (07:53)
[2016-10-18] MEDS ORDERED: CEROVITE ADV FORMULA TAB PO SCH (09:00)
[2016-10-18] MEDS ORDERED: CHOLECALCIFEROL 1000 INTER.UNIT TAB PO SCH (09:00)
--- NOTE | 2016-10-18 09:59 | Orthopedic Progress Note ---
Orthopedic Progress Note Date of Service Oct 18, 2016. Subjective Post OP Day: 2 Reports: feeling well, pain controlled w PO medications, Denies: SOB, calf pain , chest pain, complaints, light headedness, nausea / vomiting Objective calves soft nontender, N/V intact, capillary refill less than 2 sec., dressing C /D/I, A&O x3, toes mobile Date Time Temp Pulse Resp B/P Pulse Ox O2 Delivery O2 Flow Rate FiO2 10/18/16 06:01 36.8 62 16 125/76 99 Room Air 10/18/16 00:00 Room Air 10/17/16 23:00 36.9 65 16 111/71 96 Room Air 10/17/16 15:37 36.9 59 18 120/74 98 Room Air 10/17/16 15:20 98 Room Air 10/17/16 11:15 37.0 64 16 95/66 98 Room Air Laboratory Results 24 Hours: Test 10/18/16 06:00 10/18/16 06:20 Prothromb Time International Ratio 1.2 Prothrombin Time 13.4 SECONDS Hematocrit 29.6 % Hemoglobin 9.6 g/dL Assessment & Plan Assessment: POD #2, Right TKA Plan: PT/ OT DVT proph- Coumadin with Lovenox bridging until INR therapeutic. D/C planning- Home w OPPT today. As per medicine Inhouse Planning Pain Management: Oxycontin, Morphine, PO Tylenol, Oxy IR DVT Prophylaxis: TEDs, SCDs, Coumadin, Lovenox Discharge Planning Discharge Planning: home with oppt Pain Management: Oxycontin, PO Tylenol, Oxy IR DVT Prophylaxis: TEDs, Coumadin, Lovenox Therapy: Physical Therapy, Occupational Therapy
[2016-10-18] MEDS ORDERED: OXYSR10 PO (10:02)
[2016-10-18] MEDS ORDERED: RXC5 PO (10:02)
[2016-10-18] MEDS ORDERED: ONDA8TAB6 PO (10:02)
[2016-10-18] MEDS ORDERED: CLB200 PO (10:02)
[2016-10-18] MEDS ORDERED: ACET-1138 PO (10:02)
[2016-10-18 10:36] VITALS: BP 125/76; PULSE 62; TEMP 36.8; O2SAT 99
--- NOTE | 2016-11-01 16:45 | DISCHARGE SUMMARY ---
HISTORY OF PRESENT ILLNESS: This is a 61-year-old female patient of Dr. Alegre's complaining of chronic right knee pain, long-standing, now progressively getting worse. The patient failed conservative treatment and was diagnosed with end-stage osteoarthritis and elected to proceed with a right total knee arthroplasty. PAST MEDICAL HISTORY: Hypercholesterolemia, atrial fibrillation, asthma, anemia, rheumatoid arthritis, osteoarthritis, and acid reflux. POSTOPERATIVE COURSE: The patient underwent a right total knee arthroplasty on 10/16/2016. She was followed closely with medical consultation due to her AFib and other comorbidities. She was followed closely with DVT prophylaxis in the form of Coumadin with Lovenox bridging, physical therapy and pain control. The patient did well postoperatively, there were no complications and she was discharged home on postoperative day #2. PHYSICAL EXAMINATION: Right knee Silverlon dressing was clean, dry and intact. There was no redness or drainage. She had no calf tenderness. Negative Homans sign. Neurologically and neurovascularly she was intact in her right lower extremity. DIAGNOSES: Status post right total knee arthroplasty with a history of hypercholesterolemia, atrial fibrillation, asthma, anemia, rheumatoid arthritis, osteoarthritis, and acid reflux. PLAN: The patient was discharged home for outpatient physical therapy. She will continue pain medications and her preoperative medications as scheduled. She will continue with Lovenox bridging until her Coumadin is therapeutic per her INR. She will defer her DVT prophylaxis to her primary care physician upon postop and follow up with us as an outpatient with Dr. Alegre as scheduled.
== END 2016-10-18 13:06 | disposition home or self-care (01) | DRG 470 ==
LOC: ENRESERVTM → ENRESERVDT → C.ACU 07:52 → C.3E 09:40
PROVIDERS: ADMIT Orthopaedic Surgery Sports Medicine; ATTEND Orthopaedic Surgery Sports Medicine
PROC: 0SRC0J9 Replacement of Right Knee Joint with Synthetic Substitute, Cemented, Open Approach (ICD-10-PCS; principal; 2016-10-16 10:00)
DX: M17.11 Unilateral primary osteoarthritis, right knee (principal); J45.909 Unspecified asthma, uncomplicated; F32.9 Major depressive disorder, single episode, unspecified; E78.5 Hyperlipidemia, unspecified; J38.1 Polyp of vocal cord and larynx; I48.91 Unspecified atrial fibrillation; I10 Essential (primary) hypertension; E78.00 Pure hypercholesterolemia, unspecified; M06.9 Rheumatoid arthritis, unspecified; K21.9 Gastro-esophageal reflux disease without esophagitis; Z86.711 Personal history of pulmonary embolism; Z90.49 Acquired absence of other specified parts of digestive tract; Z90.710 Acquired absence of both cervix and uterus; Z87.891 Personal history of nicotine dependence; Z91.013 Allergy to seafood; Z79.01 Long term (current) use of anticoagulants; Z79.52 Long term (current) use of systemic steroids; Z82.49 Family history of ischemic heart disease and other diseases of the circulatory system

== ENCOUNTER 2020-07-11 09:40 | Inpatient (IN) ==
--- NOTE | 2020-07-04 13:14 | Anesthesiology Consultation ---
Date of Service July 04, 2020 Assessment & Plan (1) Encounter for pre-operative examination: Chart Review Chart Review: Acceptable Risk for Surgery (pending preop Covid testing ) and Patient NOT seen in Pre Admission Testing Pt initially scheduled 06/27/20 for surgery but on DOS it was discovered patient's mother had upper respiratory issues questionable for Covid. It was decided to postpone procedure. Pt's mother was tested for Covid and was negative. -Check PT/INR STAT AM of surgery Per nursing assessment 07/04/20, pt traveled to [facility] with parents on 06/28/20 when mother had surgery (she sat in waiting room/lobby and wore appropriate PPE). Always wears PPE in public. No known Covid positive contacts or Covid related symptoms. Schedule for preop Covid testing 07/05/20. Seen by PCP 05/31/20= "Patient medically optimized for TKA" History Surgery Operation Date: 07/11/20 13:10 Proposed Procedures p Left Total Knee Arthroplasty - Matthew Alegre MD Height/Weight Height: 5 ft 8.5 in Weight: 94.347 kg Allergies Allergy/AdvReac Type Severity Reaction Status Date / Time shellfish derived Allergy Severe anaphylaxis Verified 06/27/20 07:02 atenolol AdvReac Unknown personality Verified 06/27/20 07:02 changes Medications Home Medications Medication Instructions Recorded Confirmed Last Taken acetaminophen [Arthritis Pain 650 mg PO Q12H PRN 05/14/20 07/04/20 06/26/20 21:30 Reliever] ipratropium-albuterol [Combivent 1 puff INHALATION Q6H PRN 05/14/20 07/04/20 Unknown Respimat] loratadine 10 mg PO QAM 05/14/20 07/04/20 Unknown lutein-zeaxanthin [Ocuvite Lutein 1 cap PO QAM 05/14/20 07/04/20 Unknown 25] metoprolol tartrate 25 mg PO QAM 05/14/20 07/04/20 Unknown omeprazole 20 mg PO BID 05/14/20 07/04/20 Unknown prednisone 5 mg PO QAM 05/14/20 07/04/20 Unknown sertraline 50 mg PO PM 05/14/20 07/04/20 Unknown simvastatin 10 mg PO HS 05/14/20 07/04/20 Unknown warfarin 2 mg PO DIRECTED 05/14/20 07/04/20 Unknown warfarin 4 mg PO DIRECTED 05/14/20 07/04/20 Unknown Past Medical History Medical History Asthma stable Cataract R/L Chronic steroid use Depression GERD (gastroesophageal reflux disease) controlled Glaucoma Hyperlipidemia Hypertension Macular degeneration Obesity On anticoagulant therapy Osteoarthritis Pulmonary emboli x2 (15 years ago) Tachycardia controlled on beta fatou Past Family History Family History Sister Diabetes Aunt Diabetes Grandmother (Paternal) Diabetes Grandmother (Maternal) Diabetes Other No family history of adverse response to anesthesia Past Surgical History Surgical History H/O exploratory laparotomy History of adenoidectomy History of arthroscopy RIGHT KNEE History of cholecystectomy History of colonoscopy X2 History of dilatation and curettage History of esophagogastroduodenoscopy (EGD) X2 History of hysterectomy History of lumpectomy of left breast History of tonsillectomy History of tooth extraction History of total knee replacement RIGHT History of trigger finger LEFT THUMB WITH RELEASE Hx of bilateral oophorectomy Hx of colectomy 2/2 diverticulitis Retinal detachment WITH REPAIR> (UNKNOWN SIDE) Vocal cord polyps REMOVED Social History Smoking Status: Former smoker tobacco type: cigarettes Do You Dip or Chew Tobacco: No Smoking End Date: ~1989 Hx Alcohol Use: No Hx Substance Use: No substance use type: does not use Testing Laboratory Results Laboratory Tests 05/25/20 05/25/20 05/25/20 15:15 15:15 15:15 WBC 8.54 Hgb 13.4 Hct 41.8 Plt Count 152 PT 26.6 H INR 2.7 H APTT 31.6 H Sodium 142 Potassium 4.3 Chloride 110 H Carbon Dioxide 28 BUN 20 H Creatinine 0.87 Glucose 138 H Hemoglobin A1c 05/25/20 15:15 WBC Hgb Hct Plt Count PT INR APTT Sodium Potassium Chloride Carbon Dioxide BUN Creatinine Glucose Hemoglobin A1c 5.4 Electrocardiogram Date: 05/25/20 Findings: + NSR @ (67) Chest X-Ray Date: 05/25/20 Findings: + NAD FINDINGS: Cardiac silhouette is upper limits of normal in size. Mild calcified plaque of the thoracic aortic arch. No pneumothorax, pleural effusion, airspace consolidation or overt pulmonary edema. Bones of the chest appear grossly intact. Cholecystectomy. Partially imaged lumbar compression deformity appears new from comparison. IMPRESSION: No acute process.
--- NOTE | 2020-07-10 19:02 | History and Physical Report ---
DATE OF ADMISSION: 07/11/2020 CHIEF COMPLAINT: Chronic left knee pain. HISTORY OF PRESENT ILLNESS: This is a 64-year-old female patient of Dr. Alegre'racquel complaining of chronic left knee pain, longstanding, now progressively getting worse. The patient has failed conservative treatment including acetaminophen intraarticular injections and the use of ice. The patient has been diagnosed with end-stage osteoarthritis per clinical and radiographic exams and wishes to proceed with a left total knee arthroplasty. The patient has increased pain with weightbearing activities and her pain does interfere with her activities of daily living. PAST MEDICAL HISTORY: Hypercholesterolemia, irregular heartbeat, history of pulmonary embolism, asthma, abnormal bleeding or bruising, osteoarthritis, acid reflux. SOCIAL HISTORY: Nonsmoker, nondrinker. FAMILY HISTORY: Noncontributory. REVIEW OF SYSTEMS: Chronic left knee pain and instability. Otherwise, denies any shortness of breath, chest pain, nausea, vomiting or any other joint complaints. PAST SURGICAL HISTORY: Hysterectomy, lumpectomy, knee replacement, D and C, and colon surgery. MEDICATIONS: 1. Simvastatin 10 mg daily. 2. Combivent 18 mcg/103 mcg actuation 2 puffs 4 times daily. 3. Loratadine 10 mg daily. 4. Metoprolol 25 mg daily. 5. Zoloft 50 mg daily. 6. Coumadin 4 mg Thursday, Thursday, , 2 mg the other days. 7. Omeprazole 20 mg 2 tablets daily. 8. Prednisone 5 mg 2 tablets daily. 9. Calcium 600 plus vitamin D daily. 10. Ocuvite daily. 11. artherist- [id number] 2 twice a day. ALLERGIES: INCLUDE ATENOLOL, IODINATED CONTRAST AND SHELLFISH. PHYSICAL EXAMINATION: GENERAL: Well-developed, well-nourished 64-year-old female in no acute distress, alert and oriented x3 and pleasant. HEENT: Normocephalic, atraumatic. Extraocular motions are intact. Pupils are equal and reactive to light. HEART: Regular rate and rhythm, no murmurs. LUNGS: Clear. ABDOMEN: Soft, nontender, bowel sounds present. EXTREMITIES: Left lower extremity mild effusion. Range of motion of 0 to 120, neutral alignment. Crepitation with passive range of motion, 5/5 strength. Neurologically and neurovascularly intact in her left lower extremity. DIAGNOSES: Left knee end-stage osteoarthritis, hypercholesterolemia, irregular heartbeat, history of pulmonary embolism, asthma, abnormal bleeding or bruising, osteoarthritis, acid reflux. PLAN: The patient was advised of her diagnosis. Indications, risks, benefits, postop course have all been reviewed. The patient wished to proceed with a left total knee arthroplasty. Necessary consent forms, preoperative testing and clearances will be obtained. DEJAH
[~2020-07-11 09:40] MED LIST changes: -BUPIVACAINE 0.25% 30 ML VIAL ONE; -CEFAZOLIN 2000 MG/60 ML D5W 60 ML IV SCH; -CLR10 PO; -DEXAMETHASONE 4 MG TAB PO SCH; -GABAPENTIN 300 MG CAP PO SCH; +GABAPENTIN 600 MG DOSE PO SCH; -HYDROCORTISONE IV 100 MG in SYRINGE 0 ML IV SCH; -IPRA1AER2 INH; -LACTATED RINGER'S 1000ML IV SCH; -LACTATED RINGER'S 500 ML IV SCH; +LR 500ML BOLUS, THEN 15ML/HR IV SCH; -METO25TA56 PO; -METOCLOPRAMIDE HCL 10 MG TAB PO SCH; +METOCLOPRAMIDE HCL 10 MG TABLET PO SCH; -MULTCAP31 PO; -PRED-301 PO; -PRLSR20 PO; +ROPIVACAINE 0.5% 5 MG/ML 30 ML VIAL ONE; +ROPIVACAINE 0.5% HCL/PF 150 MG, BUPIVACAINE 0.5% MPF 30 ML, EPINEPHrine 30MG/30ML (OR U... INSTIL SCH; -ROPIVACAINE 5MG/ML 30 ML 150 MG, BUPIVACAINE/EPINEPHR 0.5% MPF 30 ML, KETOROLAC TROMETH... INFIL SCH; -SERT50TA PO; -SIMV10TA2 PO; -WARF2TAB8 PO; -WARF4TAB8 PO; -[UNRECOGNIZED DRUG - OTHER] PO; +ceFAZolin 2000MG 2,000 MG/15 ML SYR IV SCH; +dexAMETHasone 4 MG TAB PO SCH
[2020-07-11 10:23] LABS: Partial Thromboplastin Ratio 0.8; Partial Thromboplastin Time 23.6 Seconds (21.0-31.0); Prothrombin Time 10.7 Seconds (9.0-12.0)
[2020-07-11] MEDS ORDERED: ORTHO JOINT ANESTHETIC ONE (12:39)
[2020-07-11] MEDS ORDERED: BACITRACIN INJ 50,000 UNIT VIAL ONE (12:39)
[2020-07-11] MEDS ORDERED: LIDOCAINE HCL 2% 2 ML VIAL/AMP(20MG/ML) INFIL ONE (12:47)
[2020-07-11] MEDS ORDERED: PROPOFOL IV EMULSION 10 MG/ML 20 ML VIAL IV ONE ×3 (12:47→15:28)
[2020-07-11] MEDS ORDERED: MIDAZOLAM HCL 1 MG/ML 2ML VIAL ONE (12:48)
[2020-07-11] MEDS ORDERED: fentaNYL citrate 100 MCG/2 ML VIAL ONE (12:48)
[2020-07-11] MEDS ORDERED: EPINEPHrine INJ 1 MG/ML AMP ONE (13:07)
--- NOTE | 2020-07-11 13:27 | History & Physical Bridge Note ---
Date of Service July 11, 2020 History & Physical Bridge Note I have examined the patient, reviewed the History & Physical and in the interval since the performance of the History & Physical I have noted the following changes of clinical significance: no changes noted
[2020-07-11] MEDS ORDERED: ePHEDrine sulfate 50 MG/ML AMP IV PRN (14:08)
[2020-07-11] MEDS ORDERED: ATROPINE SULFATE 0.1 MG/ML 10ML SYR IV PRN (14:08)
--- NOTE | 2020-07-11 15:32 | Post Operative Brief Note ---
Immediate Post Op Note v1 Date of Surgery July 11, 2020 Pre & Post Diagnosis Operation Date: 07/11/20 12:55 Pre-Op Diagnosis: Unilateral Primary Osteoarthritis, Left Knee Post-Op Diagnosis: Unilateral Primary Osteoarthritis, Left Knee I identified the patient and participated in the time-out.: Yes Procedure Operation Date: 07/11/20 12:55 Actual Procedures p Left Total Knee Arthroplasty, Cemented(Left) - Matthew Alegre MD Surgeon Matthew Alegre MD Loading Checker MARY Ferris Estimated Blood Loss 5 Findings Consistent with Post-Op Diagnosis Specimens Bone cuts Drains Hemovac Drain (10fr dual) Anesthesia Type MAC Spinal Regional Complications none Disposition Accompanied Patient To Recovery: No Disposition: Recovery Room Overlapping Procedure I was immediately available: during the entire case.
--- NOTE | 2020-07-11 15:40 | Operative Report ---
Post Operative Report Pre & Post Diagnosis Operation Date: 07/11/20 12:55 Pre-Op Diagnosis: Unilateral Primary Osteoarthritis, Left Knee Post-Op Diagnosis: Unilateral Primary Osteoarthritis, Left Knee I identified the patient and participated in the time-out.: Yes Procedure Operation Date: 07/11/20 12:55 Actual Procedures p Left Total Knee Arthroplasty, Cemented(Left), superficial wound VAC- Matthew Alegre MD Surgeon Matthew Alegre MD Radiology Practitioner Assistant MARY Ferris Estimated Blood Loss 5 Findings Consistent with Post-Op Diagnosis Specimens Bone cuts Drains 2 Hemovac Anesthesia Type MAC Spinal Regional Complications none Disposition Accompanied Patient To Recovery: No Disposition: Recovery Room Indications 64-year-old female with progressive osteoarthritis left knee failed conservative management. She has successful right knee replacement. Diagnostic work-up reveals osteoarthritis left knee [id number] in the medial patellofemoral joint and medial joint space narrowing with medial compartment and patellofemoral OA. Description of Procedure The patient was taken to the operating room and anesthetized under spinal MAC regional. Patient was placed supine on the the operating table. A pneumatic tourniquet was placed about the obese left upper thigh. The knee exam demonstrated good range of motion crepitation and patellofemoral joint small effusion and no instability patient an obese leg and knee and thigh. The involved leg was elevated exsanguinated with Esmarch bandage and the pneumatic tourniquet was raised to 350 millimeters mercury. A longitudinal incision was made across the anterior knee. Skin flaps were elevated. An incision was made into the medial retinaculum and extended up into the mid third of the quadriceps tendon and extended down to the tibial tubercle. Intra-articular findings demonstrated grade 4 chondral lesion on the medial femoral condyle and grade 4 chondral lesion anterior medial tibial plateau [id number] medial compartment and [id number] medial patellofemoral joint on the medial femoral condyle and medial facet of the patella.. The knee was exposed by excising cruciate ligaments and menisci. The infrapatellar fat pad was resected. The fat pad over the anterior femur at the upper aspect of the articular surface was resected for placement of the component in that area. A subperiosteal peel lateral release was performed around the patella The Ch[employer]hew journey 2.0 total knee arthroplasty system was utilized for the procedure. The custom femoral cutting guide was pinned in position. The distal femoral cut was made. The size 5, 5 in 1 cutting block was placed. The anterior posterior and chamfer cuts were made. The knee was extended and a free hand cut technique was performed to the patella. The patella with was measured and the width was reproduced using a 38 symmetrical patella component. 3 drill holes are made for the patella component pegs. The tibia was then subluxed. The custom tibial cutting block was pinned in position and the proximal tibial cut was made with the oscillating saw. The size 4 tibial trial was externally rotated in line with the tibial tubercle and pinned in position. The punch for the stem was used. The femoral trial was inserted and centered the notch cutting devices were used and the collet was placed. Tibial trials were used for the insert. In order to balance ligaments had to do a medial posterior medial release and piecrust the MCL slightly. The size 12 trial gave balanced ligaments through full range of motion. Patella tracking was assessed with range of motion. The patella tracked centrally. The trials were removed. The Orthomix anesthetic cocktail was inj ected per protocol. The cut bone surfaces and soft tissue were copiously irrigated with antibiotic solution with bacitracin. The final components were cemented with Simplex cement. The final components were Cham[employer]hew journey 2.0 posterior stabilized left 5 femoral component, 4 tibial baseplate, 12 mm posterior stabilized polyethylene tibial insert and a 38 symmetrical polyethylene patella. While the cement cured the Betadine soak was used per protocol. When the cement cured the knee was copiously irrigated with pulsatile lavage antibiotic solution with bacitracin. 2 drains were brought out laterally connected to Hemovac. The quadriceps tendon and medial retinaculum were closed with interrupted [id number] #1 Vicryl sutures. The knee was taken through full range of motion and repair was secure. The subcutaneous tissues were closed with 2-0 Vicryl sutures. The skin was closed with key. A superficial wound VAC was applied. The tourniquet was let down and the patient had good capillary refill to the extremity. The patient tolerated the procedure well. My physician physician assistant certified MARY Ferris assisted in the procedure including prepping draping leg positioning soft tissue retraction instrument management and assisted in the closure , performed application of superficial wound VAC and will participate in postoperative care the patient. I attest to the content of the Intraoperative Record and any orders documented therein. Any exceptions are noted below.
--- NOTE | 2020-07-11 16:02 | Anesthesiology Progress Note ---
Date of Service July 11, 2020 Anesthesia Post Procedure Vital Signs Vital Signs: Temp Pulse Pulse Resp BP BP Pulse Ox 07/11/20 15:55 78 16 161/79 H 100 07/11/20 15:45 86 14 145/80 H 99 07/11/20 15:35 37.3 C 92 H 16 155/84 H 100 07/11/20 10:20 37.0 C 66 20 140/80 99 Transfer of Care Handoff Completed per policy Notes Mental Status: alert / awake / arousable and participated in evaluation Nausea / Vomiting: adequately controlled Pain: adequately controlled Airway Patency, RR, SpO2: stable & adequate BP & HR: stable & adequate Hydration State: stable & adequate Neuraxial Anesthesia: was administered and sensory block is resolving Anesthetic Complications: no major complications apparent and Pt Satisfied with anesthetic care
--- NOTE | 2020-07-11 16:16 | XRay Report ---
XR knee LT 1 or 2V routine CLINICAL HISTORY: Postoperative examination COMPARISON: None. DISCUSSION: There are postsurgical changes of a total left knee arthroplasty and patellar resurfacing . The femoral and tibial components appear well seated. Overlying skin key and surgical drains ar e evident. There is gas within the soft tissues consistent with recent surgery IMPRESSION: Postsurgical changes of a total left knee arthroplasty ACT 112: Negative or not required by law. Electronically signed by: Rios Henry M.D. 07/11/2020 4:15 PM
[2020-07-11] MEDS: SODIUM CHLORIDE 0.9% 1000ML 1,000 ML IV SCH (16:40)
[2020-07-11] MEDS ORDERED: MAGNESIUM HYDROXIDE SUSP 30 ML UDC PO PRN (16:47)
[2020-07-11] MEDS ORDERED: NALOXONE HCL 0.4 MG/1 ML VIAL/CARP IV PRN (16:47)
[2020-07-11] MEDS ORDERED: diphenhydrAMINE Capsule 25 MG CAP PO PRN (16:47)
[2020-07-11] MEDS ORDERED: ONDANSETRON INJ 2 MG/ML 2 ML VIAL IV PRN (16:47)
[2020-07-11] MEDS ORDERED: HYDROmorphone INJ 0.5 MG/0.5 ML SYR IV PRN (16:47)
[2020-07-11] MEDS ORDERED: IPRATROPIUM BROMIDE/ALBUTEROL respimat INH INH PRN ×2 (16:47→18:01)
[2020-07-11] MEDS ORDERED: oxyCODONE HCL IR 5 MG TAB (IMMEDIATE RELEASE) PO PRN (16:47)
[2020-07-11] MEDS ORDERED: bisacodyL 10 MG SUPP PR PRN (16:47)
[2020-07-11] MEDS ORDERED: WARFARIN SOD 2 MG TAB PO SCH (17:00)
[2020-07-11] MEDS ORDERED: ALBUTEROL HFA 8 GM INHALER INH PRN (17:03)
[2020-07-11] MEDS ORDERED: IPRATROPIUM BROMIDE HFA INHALER INH PRN (17:04)
--- NOTE | 2020-07-11 18:30 | Hospitalist Consultation ---
Date of Consultation July 11, 2020 Assessment & Plan (1) Status post total left knee replacement: POD #0 Left TKR - Pain control, PT/OT per primary service - Pt has a history of PE x 2 so increased risk for post-operative DVT/PE - being bridged with Lovenox (see info below) (2) History of pulmonary embolism: On chronic anticoagulation - currently being bridged with Lovenox. Below is the schedule for the bridge from [facility] 07/11/20 - no Lovenox, Coumadin 6 mg 07/12/20 - Lovenox 100 mg at 8 pm, Coumadin 6 mg 07/13/20 - Lovenox 100 mg at 8 am and 100 mg at 8 pm, Coumadin 4 mg 07/14/20 - Lovenox 100 mg at 8 am and 100 mg at 8 pm, resume Coumadin dosing of 4 mg //, 2 mg all other days Repeat PT/INR to be done on 07/18/20 at [place] Entered doses for 07/11, 07/12 and 07/13 in orders. If pt is still admitted past 07/13, she will need additional orders entered. (3) Asthma: Mild intermittent - uses prn Combivent rarely but will order (4) Seronegative polyarthritis: - On chronic prednisone therapy - will continue (5) Dyslipidemia: - Continue outpatient statin therapy (6) Palpitations: Controlled on beta-fatou - continue metoprolol tartrate at home dosing and monitor (7) GERD (gastroesophageal reflux disease): - On omeprazole 20 mg BID as outpatient - continue PPI while admitted Patient seen and reviewed with collaborating physician, Dr. Moe. Plan of care discussed and as outlined above. Thank you for this consultation. We will continue to follow this patient with you. [facility] at [phone]. Please do not hesitate to call with questions or concerns. Jason Kent PA-C Supervising Physician Co-Signing Physician Notes Attending addendum The patient was seen and examined in the medical floor She has a history of pulmonary embolism and is status post left TKA She remains stable in bed without any significant symptoms On examination No apparent distress at rest Hemodynamically stable Chest-clear to auscultate bilaterally Heart-S1-S2, regular. No murmur appreciated Abdomen-benign Extremities-no edema Labs and imaging studies reviewed She is status post left TKA on Coumadin for history of pulmonary embolism Coumadin has been restarted Reviewed and agree with assessment plan as outlined above by SHAKEEL Fernandez Dr History of Present Illness Reason for Consultation: Post-operative medical management Requesting Physician: Matthew Alegre MD Attending Physician: Matthew Alegre MD History of Present Illness This is a 64 y/o female with a PMH of prior PE, now on chronic anticoagulation, dyslipidemia, serognegative polyarthritis on chronic prednisone, intermittent asthma, hx of basal cell CA, who underwent left TKR today by Dr. Alegre. We have been consulted for post-operative medical management. Pt is currently feeling fair - she does complain of some occasional dizziness and mild GI upset after attempting to eat dinner (stomach "feel off") but no vomiting. Her left knee pain is currently well-controlled. She denies chest pain, palpitations, cough, shortness of breath, MYRES, numbness, tingling. She was able to urinate a small amount after surgery. Pt is on chronic warfarin therapy for which she follows with the coag clinic in at [facility]. She underwent bridge therapy with Lovenox with last dose of warfarin being 07/05/20 and last dose of Lovenox being yesterday morning. Allergies Allergy/AdvReac Type Severity Reaction Status Date / Time shellfish derived Allergy Severe anaphylaxis Verified 07/11/20 10:20 atenolol AdvReac Severe personality Verified 07/11/20 10:20 changes Home Medications Home Medications Medication Instructions Recorded Confirmed Type acetaminophen [Arthritis Pain 650 mg PO Q12H PRN 05/14/20 07/11/20 History Reliever] ipratropium-albuterol [Combivent 1 puff INHALATION Q6H PRN 05/14/20 07/11/20 History Respimat] loratadine [Claritin] 10 mg PO QAM 05/14/20 07/11/20 History lutein-zeaxanthin [Ocuvite Lutein 1 cap PO QAM 05/14/20 07/11/20 History 25] metoprolol tartrate 25 mg PO QAM 05/14/20 07/11/20 History omeprazole 20 mg PO BID 05/14/20 07/11/20 History prednisone 5 mg PO BID 05/14/20 07/11/20 History sertraline [Zoloft] 50 mg PO PM 05/14/20 07/11/20 History simvastatin 10 mg PO HS 05/14/20 07/11/20 History warfarin 2 mg PO DIRECTED 05/14/20 07/11/20 History warfarin 4 mg PO DIRECTED 05/14/20 07/11/20 History Patient History Medical History (Updated 07/11/20 @ 18:24 by Ashley Kent PA-C) Asthma stable Cataract R/L Chronic steroid use Depression GERD (gastroesophageal reflux disease) controlled Glaucoma Hyperlipidemia Hypertension Macular degeneration Obesity On anticoagulant therapy Osteoarthritis Pulmonary emboli x2 (15 years ago) Pulmonary embolism Seronegative polyarthritis Tachycardia controlled on beta fatou Surgical History (Updated 07/11/20 @ 18:23 by Ashley Kent PA-C) H/O exploratory laparotomy History of adenoidectomy History of arthroscopy RIGHT KNEE History of cholecystectomy History of colonoscopy X2 History of dilatation and curettage History of esophagogastroduodenoscopy (EGD) X2 History of hysterectomy History of lumpectomy of left breast History of tonsillectomy History of tooth extraction History of total knee replacement RIGHT History of trigger finger LEFT THUMB WITH RELEASE Hx of bilateral oophorectomy Hx of colectomy 2/2 diverticulitis Retinal detachment WITH REPAIR> (UNKNOWN SIDE) Vocal cord polyps REMOVED Family History Sister Diabetes Aunt Diabetes Grandmother (Paternal) Diabetes Grandmother (Maternal) Diabetes Other No family history of adverse response to anesthesia Social History Smoking Status: Former smoker Smoking End Date: ~1989; Second Hand Exposure: No; Do You Dip or Chew Tobacco: No; Tobacco Cessation Education Requested by Patient: No Hx Alcohol Use: No Hx Substance Use: No Preferred Language: Liberian Communication Ability: Effective Corporate Associate Attorney Required: No Beliefs That Will Affect Care: None Current Living Situation: Family Current Living Situation Comment: lives with mother and father Other Information That Helps Us Care for You: No Feels Safe at Home: Yes Safety Concerns: Feels Safe At This Time Assistive Devices: Glasses Review of Systems Review of Systems: All systems reviewed & are unremarkable except as noted in HPI & below Constitutional: no fever, no chills and no weakness Eyes: no diplopia and no worsening vision Ear, Nose, Mouth, Throat: no nasal congestion, no nasal discharge, no sore throat and no dysphagia Respiratory: no cough, no dyspnea, no hemoptysis and no wheezing Cardiovascular: + lightheadedness; no chest pain, no palpitations, no syncope and no edema Gastrointestinal: as per Subjective / HPI; no abdominal pain, no heartburn, no vomiting and no diarrhea/loose stools Genitourinary: no dysuria, no urinary frequency, no urinary urgency and no hematuria Musculoskeletal: as per Subjective / HPI; no radicular pain and no swelling Integumentary: no rash and no urticaria Neurologic: no paresthesia, no tremor(s), no seizure-like activity and no headache(s) Physical Exam Constitutional: WD/WN, vitals as above no acute distress Eyes: + anicteric sclerae; no conjunctival abnormality ENMT: external ear and nose normal, oropharynx normal Neck: trachea midline Respiratory: no respiratory distress Auscultation: lungs clear to auscultation bilaterally; no rales, no rhonchi and no wheezes Cardiovascular: Rate/Rhythm: regular rate and regular rhythm Heart Sounds: no gallop, no murmur and no cardiac rub Vessels: dorsalis pedis pulses present Extremities: no pedal edema Gastrointestinal (Abdomen): Inspection/Auscultation: normal bowel sounds Percussion/Palpation: abdomen soft; abdomen nontender Musculoskeletal: Head/Neck/Chest: normocephalic, head atraumatic and neck supple Extremities: no cyanosis and no clubbing Skin: no rashes, warm and dry no jaundice left knee dressing C/D/I Neurologic: moves all extremities; no focal motor deficits Speech / Cognition: normal speech Psychiatric: A+Ox3, euthymic affect Results & Data Results & Data ([facility]) Vital Signs (Past 12 Hours) Vital Signs Temp Pulse Pulse Pulse Resp BP BP 07/11/20 17:39 36.8 C 85 16 144/82 H 07/11/20 17:11 36.8 C 72 16 127/77 07/11/20 16:40 36.9 C 70 15 135/81 07/11/20 16:25 73 16 121/69 07/11/20 16:15 75 15 136/74 07/11/20 16:05 36.7 C 74 16 143/79 H 07/11/20 15:55 78 16 161/79 H 07/11/20 15:45 86 14 145/80 H 07/11/20 15:35 37.3 C 92 H 16 155/84 H 07/11/20 10:20 37.0 C 66 20 140/80 Pulse Ox 07/11/20 17:39 93 07/11/20 17:11 93 07/11/20 16:40 96 07/11/20 16:25 94 07/11/20 16:15 93 07/11/20 16:05 94 07/11/20 15:55 100 07/11/20 15:45 99 07/11/20 15:35 100 07/11/20 10:20 99 Laboratory Results 07/11/20 07/11/20 10:01 10:01 PT 10.7 INR 1.0 APTT 23.6 PTT Ratio 0.8 Blood Type A Negative Antibody Screen NEGATIVE Medications Administered Sodium Chloride (Nss 1000ml) 1,000 mls @ 100 mls/hr IV .Q10H ADAMA Stop: 07/12/20 16:59 Last Admin: 07/11/20 16:40 Dose: 100 mls/hr Documented by: [id number] Discontinued Medications Acetaminophen (Acetaminophen 500 Mg Tab) 1,000 mg PO PREOP ADAMA Stop: 07/11/20 18:00 Last Admin: 07/11/20 10:36 Dose: 1,000 mg Documented by: [id number] Bacitracin (Bacitracin Inj 50,000 Unit Vial) Confirm Administered Dose 50,000 units .ROUTE .STK-MED ONE Stop: 07/11/20 12:40 Last Admin: 07/11/20 15:00 Dose: 50,000 units Documented by: [id number] Celecoxib (Celebrex 200 Mg Cap) 200 mg PO PREOP ADAMA Stop: 07/11/20 18:00 Last Admin: 07/11/20 10:37 Dose: 200 mg Documented by: [id number] Dexamethasone (Dexamethasone 4 Mg Tab) 8 mg PO PREOP ADAMA Stop: 07/11/20 18:00 Last Admin: 07/11/20 10:36 Dose: 8 mg Documented by: [id number] Famotidine (Famotidine 20 Mg Tab) 20 mg PO PREOP ADAMA Stop: 07/11/20 18:00 Last Admin: 07/11/20 10:37 Dose: 20 mg Documented by: [id number] Gabapentin (Gabapentin 600 Mg Dose) 600 mg PO PREOP ADAMA Stop: 07/11/20 18:00 Last Admin: 07/11/20 10:36 Dose: 600 mg Documented by: [id number] Lactated Ringer's (Lr) 1,000 mls @ 15 mls/hr IV .Q24H ADAMA Stop: 07/11/20 18:00 Last Infusion: 07/11/20 13:40 Dose: 0 mls/hr Documented by: [id number] Admin: 07/11/20 10:37 Dose: 15 mls/hr Documented by: [id number] Cefazolin Sodium (Ancef 2000mg) 2,000 mg in 15 mls @ 3.75 mls/min IV PREOP ADAMA; Protocol Stop: 07/11/20 18:00 Last Admin: 07/11/20 13:40 Dose: 3.75 mls/min Documented by: [id number] Ropivacaine 150 mg/Bupivacaine HCl 30 ml/Epinephrine HCl 0.15 mg/Ketorolac Tromethamine 30 mg/Dexamethasone 4 mg/ Ketamine HCl 10 mg/ Clonidine HCl 100 mcg/ Sodium Chloride 93.35 mls @ 0 mls/hr INSTIL PREOP ADAMA Stop: 07/11/20 06:01 Last Admin: 07/11/20 14:55 Dose: 1 mls/hr Documented by: [id number] Metoclopramide HCl (Metoclopramide Hcl 10 Mg Tablet) 10 mg PO PREOP ADAMA Stop: 07/11/20 18:00 Last Admin: 07/11/20 10:37 Dose: 10 mg Documented by: [id number] Miscellaneous (Ortho Joint Anesthetic ) Confirm Administered Dose 1 ea .ROUTE .STK-MED ONE Stop: 07/11/20 12:40 Last Admin: 07/11/20 15:08 Dose: Not Given Documented by: [id number] Warfarin Sodium (Warfarin Sod 2 Mg Tab) 2 mg PO [id number] [facility] Stop: 08/10/20 16:59 Last Admin: 07/11/20 18:15 Dose: Not Given Documented by: [id number] (1) GERD (gastroesophageal reflux disease) Esophagitis presence: without esophagitis Qualified Code(s): K21.9 - Gastro- esophageal reflux disease without esophagitis (2) Asthma Asthma complication type: uncomplicated Asthma persistence: intermittent Asthma severity: mild Qualified Code(s): J45.20 - Mild intermittent asthma, uncomplicated
[2020-07-11] MEDS: ceFAZolin 2000MG 2,000 MG/15 ML SYR IV SCH (20:28)
[2020-07-11] MEDS: WARFARIN SOD 6 MG TAB PO SCH (20:28)
[2020-07-11] MEDS: predniSONE 5 MG TAB PO SCH (20:29)
[2020-07-11] MEDS: DOCUSATE SODIUM 100 MG CAP PO SCH (20:29)
[2020-07-11] MEDS: SENNA 8.6 MG TAB PO SCH (20:30)
[2020-07-11] MEDS: SERTRALINE HCL 50 MG TABLET PO SCH (20:30)
[2020-07-11] MEDS: SIMVASTATIN 10 MG TAB PO SCH (20:30)
[2020-07-11] MEDS: PANTOprazole 40 MG TAB PO SCH (20:30)
[2020-07-11] MEDS: ACETAMINOPHEN 500 MG TAB PO SCH (20:31)
[2020-07-12] MEDS: SODIUM CHLORIDE 0.9% 1000ML 1,000 ML IV SCH ×2 (04:14→19:39)
[2020-07-12] MEDS: ceFAZolin 2000MG 2,000 MG/15 ML SYR IV SCH (06:05)
[2020-07-12] MEDS: ACETAMINOPHEN 500 MG TAB PO SCH ×3 (06:06→20:45)
[2020-07-12 06:37] LABS: Hemoglobin 11.9 g/dL (12.0-16.0); Mean Corpuscular Hemoglobin 30.6 pg (25-34); Mean Corpuscular Hgb Conc 32.2 g/dL (32-36); Mean Corpuscular Volume 95.1 fL (80-100); Mean Platelet Volume 10.7 fL (7.4-10.4); Platelet Count 167 K/uL (130-400); RDW Coefficient of Variation 12.7 % (11.5-14.5); RDW Standard Deviation 43.9 fL (36.4-46.3); Red Blood Count 3.89 M/uL (4.2-5.4); White Blood Count 14.05 K/uL (4.8-10.8)
[2020-07-12 06:52] LABS: Prothrombin Time 10.9 Seconds (9.0-12.0)
[2020-07-12 07:10] LABS: BUN Creatinine Ratio 19.4 (10-20); Calcium 8.1 mg/dl (8.5-10.1); Creatinine Clr Calc Pharmacy 71.7 ml/min; Est GFR (African American) 69.4; Est GFR (Non-African American) 59.9; Potassium 4.2 mmol/L (3.5-5.1)
--- NOTE | 2020-07-12 08:11 | Orthopedic Progress Note ---
Date of Service July 12, 2020 Assessment & Plan (1) Status post total left knee replacement: Postop day 1 status post left total knee arthroplasty. PT/OT protocols. Weightbearing as tolerated. DVT prophylaxis-warfarin, SCDs Pain management as written. DC planning-patient planning on outpatient PT at [facility] Admission and Anticipated Discharge Date Admission Date: July 11, 2020 Subjective Patient lying in bed awake and alert. No complaints this morning. Pain is controlled. Denies shortness of breath, chest pain, lightheadedness. Physical Exam Physical Exam: Dressings are clean, dry, and intact. No drainage noted in the Michaelle wound VAC. Hemovac present and drained 215 cc from the previous shift. Calves are soft nontender. Neurovascular is intact. Toes are mobile. Results & Data ([facility]) Vital Signs (Past 12 Hours) Vital Signs Temp Pulse Resp BP Pulse Ox 07/12/20 04:19 36.9 C 63 14 118/73 96 07/11/20 23:55 36.8 C 67 14 103/65 95 Laboratory Results Laboratory Results WBC 14.05 K/uL (4.8-10.8) H 07/12/20 06:12 RBC 3.89 M/uL (4.2-5.4) L 07/12/20 06:12 Hgb 11.9 g/dL (12.0-16.0) L 07/12/20 06:12 Hct 37.0 % (37-47) 07/12/20 06:12 MCV 95.1 fL (80-100) 07/12/20 06:12 MCH 30.6 pg (25-34) 07/12/20 06:12 MCHC 32.2 g/dL (32-36) 07/12/20 06:12 RDW Std Deviation 43.9 fL (36.4-46.3) 07/12/20 06:12 RDW Coeff of Harmeet 12.7 % (11.5-14.5) 07/12/20 06:12 Plt Count 167 K/uL (130-400) 07/12/20 06:12 MPV 10.7 fL (7.4-10.4) H 07/12/20 06:12 PT 10.9 Seconds (9.0-12.0) 07/12/20 06:12 INR 1.0 (0.9-1.1) 07/12/20 06:12 APTT 23.6 Seconds (21.0-31.0) 07/11/20 10:01 PTT Ratio 0.8 07/11/20 10:01 Sodium 143 mmol/L (136-145) 07/12/20 06:12 Potassium 4.2 mmol/L (3.5-5.1) 07/12/20 06:12 Chloride 110 mmol/L (98-107) H 07/12/20 06:12 Carbon Dioxide 27 mmol/L (21-32) 07/12/20 06:12 Anion Gap 6.0 (3-11) 07/12/20 06:12 BUN 19 mg/dl (7-18) H 07/12/20 06:12 Creatinine 1.00 mg/dl (0.6-1.2) 07/12/20 06:12 Est Cr Clr Drug Dosing 71.7 ml/min 07/12/20 06:12 Est GFR ( Amer) 69.4 07/12/20 06:12 Est GFR (Non-Af Amer) 59.9 07/12/20 06:12 BUN/Creatinine Ratio 19.4 (-20) 07/12/20 06:12 Glucose 128 mg/dl (70-99) H 07/12/20 06:12 Calcium 8.1 mg/dl (8.5-10.1) L 07/12/20 06:12 Blood Type A Negative 07/11/20 10:01 Antibody Screen NEGATIVE 07/11/20 10:01
[2020-07-12] MEDS: LORATADINE 10 MG TAB PO SCH (08:16)
[2020-07-12] MEDS: DOCUSATE SODIUM 100 MG CAP PO SCH ×2 (08:16→20:50)
[2020-07-12] MEDS: METOPROLOL TARTRATE 25 MG TAB PO SCH (08:16)
[2020-07-12] MEDS: PANTOprazole 40 MG TAB PO SCH ×2 (08:16→20:51)
[2020-07-12] MEDS: MULTIVITAMIN TAB PO SCH (08:16)
[2020-07-12] MEDS: predniSONE 5 MG TAB PO SCH (08:16)
[2020-07-12] MEDS ORDERED: predniSONE 5 MG TAB PO SCH (09:00)
--- NOTE | 2020-07-12 09:11 | Hospitalist Progress Note ---
Date of Service July 12, 2020 Assessment & Plan (1) Status post total left knee replacement: POD #1 Left TKR -Per ortho for pain control, wound care, anticoagulation and activities -Monitor H&H (hgb of 11.9 today from 13.4 preoperatively), continue incentive spirometry, PT/OT when appropriate -Leukocytosis of 14.05 today, likely post-operative. No fever or e/o infection. Also on chronic prednisone. Continue to monitor -Pt has a history of PE x 2 so increased risk for post-operative DVT/PE - being bridged with Lovenox (see info below) (2) History of pulmonary embolism: On chronic anticoagulation - currently being bridged with Lovenox. Below is the schedule for the bridge from [facility] 07/11/20 - no Lovenox, Coumadin 6 mg 07/12/20 - Lovenox 100 mg at 8 pm, Coumadin 6 mg 07/13/20 - Lovenox 100 mg at 8 am and 100 mg at 8 pm, Coumadin 4 mg 07/14/20 - Lovenox 100 mg at 8 am and 100 mg at 8 pm, resume Coumadin dosing of 4 mg /, 2 mg all other days Repeat PT/INR to be done on 07/18/20 at [place] Entered doses for 07/11, 07/12 and 07/13 in orders. If pt is still admitted past 07/13, she will need additional orders entered. (3) Asthma: Mild intermittent - uses prn Combivent rarely but will order (4) Seronegative polyarthritis: - On chronic prednisone therapy - will continue (5) Dyslipidemia: - Continue outpatient statin therapy (6) Palpitations: Controlled on beta-fatou - continue metoprolol tartrate at home dosing and monitor (7) GERD (gastroesophageal reflux disease): - On omeprazole 20 mg BID as outpatient - continue PPI while admitted Patient seen in collaboration with Dr. Marion. Please see addendum. Thank you for this consultation. We will follow the patient with you during their hospital stay. You can reach a member of the [facility] Hospitalist Team 27/04 via pager @ [phone]. Admission and Anticipated Discharge Date Admission Date: July 11, 2020 Supervising Physician Co-Signing Physician Notes Attending Addendum: care coordinated with MARY Vora please refer to her notes for full details, I agree with her notes patient seen and examined, records reviewed by myself as well on exam, patient seen sitting up in bed, watching TV, comfortable Reports having a presyncopal episode this morning while in the bathroom standing up Also felt somewhat lightheaded and weak during physical therapy No chest pain, shortness of breath, palpitations no other symptoms VS noted and reviewed oriented x 3 , not in distress, speaks in sentences with no effort nor accessory muscle use normal rate, regular rhythm, no murmurs clear breath sounds bilaterally non distended, soft, nontender Right knee and lower extremity positive heavy dressing in place, with Hemovac, small amount of serous output no bipedal edema, erythema, warmth no neuro deficits WBC 14 Hg 3.8 Crea 1.0 ASSESSMENT AND PLAN Status post left knee surgery Positive for syncopal episode this morning, with marginal blood pressure Possible component of adrenal insufficiency, given chronic prednisone use Start hydrocortisone 25 mg every 8 hours x3 doses, then transition to usual prednisone 5 mg twice daily IV fluids also ordered other diagnoses and plan of care as per MARY Marion MD Subjective Pt was seen and examined in 314-1 lying in bed comfortably. Feeling well today. Minimal surgical site pain of left knee. Denies weakness in lower extremities. Has been ambulating without issue. Denies fever, chills, lightheadedness, visual changes, chest pain, SOB, nausea, vomiting, abdominal pain, dysuria or diarrhea. Urinating without issue. Passing flatus, no bowel movement yet. Review of Systems Review of Systems: At least ten systems reviewed and negative except as noted in the HPI. Physical Exam Physical Exam: General Appearance: WD/WN, vitals as above, NAD, lying in bed, pleasant, conversing easily Head: normocephalic, atraumatic Eyes: normal inspection, PERRL, conjunctivae normal, anicteric sclerae ENT: external ear and nose normal, oropharynx normal Neck: normal visual inspection, trachea midline, no thyromegaly Respiratory: normal respiratory effort, lungs clear to auscultation Cardiovascular: regular rate, rhythm, no murmur, normal peripheral pulses, no BLE edema Abdomen/GI: normal bowel sounds, soft, nontender, no hepatosplenomegaly Extremities/Musculoskeletal:+ L knee dressing c/d/i. Drain visualized. No cyanosis or clubbing, extremities motor strength 5/5 Neurologic: PERRL, CN's II-XI intact bilaterally and moves all extremities Psychiatric: A+Ox3, euthymic affect Skin: no rashes, normal color, warm/dry Results & Data Results & Data ([facility]) Vital Signs (Past 12 Hours) Vital Signs Temp Pulse Resp BP BP Pulse Ox 07/12/20 08:11 37.0 C 71 18 110/74 96 07/12/20 04:19 36.9 C 63 14 118/73 96 07/11/20 23:55 36.8 C 67 14 103/65 95 Laboratory Results Short CBC 07/12/20 Range/Units 06:12 WBC 14.05 H (4.8-10.8) K/uL Hgb 11.9 L (12.0-16.0) g/dL Hct 37.0 (37-47) % Plt Count 167 (130-400) K/uL BMP 07/12/20 06:12 Sodium 143 Potassium 4.2 Chloride 110 H Carbon Dioxide 27 BUN 19 H Creatinine 1.00 Glucose 128 H Calcium 8.1 L (1) GERD (gastroesophageal reflux disease) Esophagitis presence: without esophagitis Qualified Code(s): K21.9 - Gastro- esophageal reflux disease without esophagitis (2) Asthma Asthma complication type: uncomplicated Asthma persistence: intermittent Asthma severity: mild Qualified Code(s): J45.20 - Mild intermittent asthma, uncomplicated
[2020-07-12] MEDS: CEROVITE ADV FORMULA TAB PO SCH (12:59)
[2020-07-12] MEDS: WARFARIN SOD 6 MG TAB PO SCH (15:21)
[2020-07-12] MEDS ORDERED: WARFARIN SOD 4 MG TAB PO SCH (16:00)
[2020-07-12] MEDS: HYDROCORTISONE SOD 25 MG in SYRINGE 0 ML IV SCH (20:45)
[2020-07-12] MEDS: ENOXAPARIN 100 MG/1ML SYR SQ SCH (20:45)
[2020-07-12] MEDS: SENNA 8.6 MG TAB PO SCH (20:46)
[2020-07-12] MEDS: SERTRALINE HCL 50 MG TABLET PO SCH (20:50)
[2020-07-12] MEDS: SIMVASTATIN 10 MG TAB PO SCH (20:50)
[2020-07-13] MEDS: HYDROCORTISONE SOD 25 MG in SYRINGE 0 ML IV SCH ×2 (04:31→11:06)
[2020-07-13] MEDS: ACETAMINOPHEN 500 MG TAB PO SCH ×2 (04:32→13:13)
[2020-07-13] MEDS: SODIUM CHLORIDE 0.9% 1000ML 1,000 ML IV SCH (04:33)
[2020-07-13 07:06] LABS: Hematocrit (blood only) 33.9 % (37-47); Hemoglobin 10.6 g/dL (12.0-16.0); Mean Corpuscular Hemoglobin 30.5 pg (25-34); Mean Corpuscular Hgb Conc 31.3 g/dL (32-36); Mean Corpuscular Volume 97.4 fL (80-100); Mean Platelet Volume 11.1 fL (7.4-10.4); Platelet Count 146 K/uL (130-400); RDW Coefficient of Variation 13.1 % (11.5-14.5); RDW Standard Deviation 46.5 fL (36.4-46.3); Red Blood Count 3.48 M/uL (4.2-5.4); White Blood Count 8.63 K/uL (4.8-10.8)
[2020-07-13 07:24] LABS: INR 1.8 (0.9-1.1); Prothrombin Time 18.1 Seconds (9.0-12.0)
[2020-07-13] MEDS: PANTOprazole 40 MG TAB PO SCH (07:30)
[2020-07-13 07:31] LABS: BUN Creatinine Ratio 19.8 (10-20); Calcium 8.6 mg/dl (8.5-10.1); Creatinine Clr Calc Pharmacy 77.9 ml/min; Est GFR (African American) 76.8; Est GFR (Non-African American) 66.3; Potassium 4.1 mmol/L (3.5-5.1)
[2020-07-13] MEDS: MULTIVITAMIN TAB PO SCH (07:31)
[2020-07-13] MEDS: LORATADINE 10 MG TAB PO SCH (07:31)
[2020-07-13] MEDS: DOCUSATE SODIUM 100 MG CAP PO SCH (07:31)
[2020-07-13] MEDS: METOPROLOL TARTRATE 25 MG TAB PO SCH (07:32)
[2020-07-13] MEDS: ENOXAPARIN 100 MG/1ML SYR SQ SCH (08:21)
--- NOTE | 2020-07-13 08:52 | Orthopedic Progress Note ---
Date of Service July 13, 2020 Assessment & Plan (1) Status post total left knee replacement: POD #2, Left TKA PT/ OT DVT proph- Coumadin, INR 1.8 this AM D/C plans- Home w OPPT today if stable off IV's As per medicine. Admission and Anticipated Discharge Date Admission Date: July 12, 2020 Subjective POD #2 Feeling well this AM, was a bit dizzy yesterday and fluids were restarted. Currently denies and SOB, CP, N/V. Pain controlled well.Wishes OPPT on D/C. Physical Exam Physical Exam: Left knee dressings c/d/i, no drainage. No calf tenderness. Toes/ ankle mobile A&Ox3. VSS Results & Data ([facility]) Vital Signs (Past 12 Hours) Vital Signs Temp Pulse Resp BP Pulse Ox 07/13/20 06:21 37.0 C 74 20 122/72 99 07/12/20 23:17 36.5 C 73 18 139/78 96
--- NOTE | 2020-07-13 10:30 | Hospitalist Progress Note ---
Date of Service July 13, 2020 Assessment & Plan (1) Status post total left knee replacement: POD #2 Left TKR -Per ortho for pain control, wound care, anticoagulation and activities -Monitor H&H (hgb of 10.6 today from 11.9 yesterday), continue incentive spirometry, PT/OT when appropriate -Leukocytosis of 14.05 today, likely post-operative. No fever or e/o infection. Also on chronic prednisone. Continue to monitor -Pt has a history of PE x 2 so increased risk for post-operative DVT/PE - being bridged with Lovenox (see info below) (2) Acute blood loss anemia: Episode of presyncope yesterday in setting of acute blood loss anemia (preop hgb of 13.4), hgb today 10.6 -Feeling better after IV fluids overnight, which have been discontinued this morning - possible discharge this afternoon if asymptomatic -Encouraged slowing changing positions, continuing PO fluid intake (3) History of pulmonary embolism: On chronic anticoagulation - currently being bridged with Lovenox. Below is the schedule for the bridge from [facility] 07/11/20 - no Lovenox, Coumadin 6 mg 07/12/20 - Lovenox 100 mg at 8 pm, Coumadin 6 mg 07/13/20 - Lovenox 100 mg at 8 am and 100 mg at 8 pm, Coumadin 4 mg 07/14/20 - Lovenox 100 mg at 8 am and 100 mg at 8 pm, resume Coumadin dosing of 4 mg //, 2 mg all other days Repeat PT/INR to be done on 07/18/20 at [place] Entered doses for 07/11, 07/12 and 07/13 in orders. If pt is still admitted past 07/13, she will need additional orders entered. (4) Asthma: Mild intermittent - uses prn Combivent rarely but will order (5) Seronegative polyarthritis: - On chronic prednisone therapy - will continue (6) Dyslipidemia: - Continue outpatient statin therapy (7) Palpitations: Controlled on beta-fatou - continue metoprolol tartrate at home dosing and monitor (8) GERD (gastroesophageal reflux disease): - On omeprazole 20 mg BID as outpatient - continue PPI while admitted Patient seen in collaboration with Dr. Marion. Please see addendum. Thank you for this consultation. We will follow the patient with you during their hospital stay. You can reach a member of the [facility] Hospitalist Team 27/04 via pager @ [phone]. Admission and Anticipated Discharge Date Admission Date: July 12, 2020 Subjective Patient seen and examined in 314-1. Feeling well this morning. Did have presyncopal event yesterday mid-morning while in the bathroom standing up. Was on IV fluids overnight with improved symptoms. Still feels lightheaded when initially changing positions but it resolves. Advised to change positions with caution and continue PO intake of fluids. Denies surgical site pain, fev er,chills,visual changes, pre syncope, chest pain, palpitations, SOB, N/V, abdominal pain, dysuria, diarrhea or constipation. Had bowel movement yesterday. Review of Systems Review of Systems: At least ten systems reviewed and negative except as noted in the HPI. Physical Exam Physical Exam: General Appearance: WD/WN, vitals as above, NAD, lying in bed, pleasant, conversing easily Head: normocephalic, atraumatic Eyes: normal inspection, PERRL, conjunctivae normal, anicteric sclerae ENT: external ear and nose normal, oropharynx normal Neck: normal visual inspection, trachea midline, no thyromegaly Respiratory: normal respiratory effort, lungs clear to auscultation Cardiovascular: regular rate, rhythm, no murmur, normal peripheral pulses, no BLE edema Abdomen/GI: normal bowel sounds, soft, nontender, no hepatosplenomegaly Extremities/Musculoskeletal:+ L knee dressing c/d/i. No cyanosis or clubbing, extremities motor strength 5/5 Neurologic: PERRL, CN's II-XI intact bilaterally and moves all extremities Psychiatric: A+Ox3, euthymic affect Skin: no rashes, normal color, warm/dry Results & Data Results & Data ([facility]) Vital Signs (Past 12 Hours) Vital Signs Temp Pulse Resp BP Pulse Ox 07/13/20 06:21 37.0 C 74 20 122/72 99 07/12/20 23:17 36.5 C 73 18 139/78 96 (1) GERD (gastroesophageal reflux disease) Esophagitis presence: without esophagitis Qualified Code(s): K21.9 - Gastro- esophageal reflux disease without esophagitis (2) Asthma Asthma complication type: uncomplicated Asthma persistence: intermittent Asthma severity: mild Qualified Code(s): J45.20 - Mild intermittent asthma, uncomplicated
[2020-07-13] MEDS: CEROVITE ADV FORMULA TAB PO SCH (11:06)
[2020-07-13] MEDS ORDERED: WARFARIN SOD 4 MG TAB PO SCH (16:00)
--- NOTE | 2020-07-22 20:42 | Discharge Summary (DS) ---
HISTORY OF PRESENT ILLNESS: This is a 64-year-old female patient of Dr. Alegre'racquel complaining of chronic left knee pain, longstanding, now progressively getting worse. The patient has failed conservative treatment and elected to proceed with a left total knee arthroplasty. PAST MEDICAL HISTORY: Hypercholesterolemia, irregular heartbeat, history of pulmonary embolism, asthma, osteoarthritis, and acid reflux. POSTOPERATIVE COURSE: The patient underwent a left total knee arthroplasty on 07/11/2020. Postoperative day #1, she did have some nausea, but no vomiting, but little physical therapy was changed because of her nauseousness. She was given a bolus of fluids and her nausea did resolve. She did well after that in physical therapy on postoperative day #2. Otherwise, an uneventful postoperative course. PHYSICAL EXAMINATION: On discharge, left knee in [place] dressing was clean, dry and intact. There was no redness or drainage. She had no calf tenderness. Negative Homans sign. Toes and ankle were mobile. Neurologically and neurovascularly, she was intact in the left lower extremity. PLAN: The patient was discharged home with outpatient physical therapy. She will continue her preadmission medications with the addition of pain medications. She will continue her Coumadin and Lovenox bridging, titration as scheduled for the next 3 days that are already in place. She will follow up with her primary care physician or her Coumadin clinic within the next 3 days to continue her anticoagulant. DIAGNOSES: Left total knee arthroplasty, history of hypercholesterolemia, irregular heartbeat, pulmonary embolism, asthma, osteoarthritis, and acid reflux. Plan, the patient was discharged home with outpatient physical therapy as above.
== END 2020-07-13 15:19 | disposition home or self-care (01) | DRG 470 ==
LOC: 3E 09:40 → ASU 09:40